=== PATIENT | female | born 1960 | race Caucasian/White ===

== ENCOUNTER 2019-02-07 05:03 | Inpatient (IN) ==
--- NOTE | 2019-01-04 10:05 | PAT Medication Instructions ---
Medication Instructions Date of Service January 04, 2019 Home Medications [facility] 1 dose PO DAILY 01/01/19 [History Confirmed 01/01/19] atorvastatin 40 mg PO QAM 01/01/19 [History Confirmed 01/01/19] celecoxib [Celebrex] 200 mg PO BID 01/01/19 [History Confirmed 01/01/19] ibuprofen 200 mg PO Q6H PRN 01/01/19 [History Confirmed 01/01/19] omeprazole 20 mg PO QAM 01/01/19 [History Confirmed 01/01/19] sertraline 50 mg PO QAM 01/01/19 [History Confirmed 01/01/19] ASK your surgeon for instructions celecoxib [Celebrex] 200 mg PO BID 01/01/19 [History Confirmed 01/01/19] ibuprofen 200 mg PO Q6H PRN 01/01/19 [History Confirmed 01/01/19] STOP taking 2 weeks before surgery (or as soon as possible if surgery is within 2 weeks) Frame [facility] 1 dose PO DAILY 01/01/19 [History Confirmed 01/01/19] Take morning of surgery With a small sip of water, OTHERWISE NOTHING TO EAT OR DRINK AFTER MIDNIGHT: atorvastatin 40 mg PO QAM 01/01/19 [History Confirmed 01/01/19] omeprazole 20 mg PO QAM 01/01/19 [History Confirmed 01/01/19] sertraline 50 mg PO QAM 01/01/19 [History Confirmed 01/01/19] Other Notes If you have any questions please call us at [phone] or [phone] or [phone] or [phone]
--- NOTE | 2019-01-07 13:55 | Anesthesiology Consultation ---
Date of Service January 07, 2019 Assessment & Plan (1) Encounter for pre-operative examination: Chart Review Chart Review: Pending: Refer to Additional Notes / Consult section (pending preop testing (labs, EKG, CXR)) and Patient seen in Pre Admission Testing Teaching & Discussion Pre-Anesthesia Teaching/Discussion Notes: Instructed NPO after midnight before surgery,except medications with 15 cc of water. Medication instructions provi ded according to the PAT guidelines. History Surgery Operation Date: 02/07/19 10:30 Proposed Procedures p Right Total Knee Arthroplasty - Reggie Elaine MD Height/Weight Height: 5 ft 4 in Weight: 85.6 kg Allergies Allergy/AdvReac Type Severity Reaction Status Date / Time No Known Allergies Allergy Verified 01/01/19 12:18 Medications Home Medications Medication Instructions Recorded Confirmed Last Taken [facility] 1 dose PO DAILY 01/01/19 01/01/19 Unknown atorvastatin 40 mg PO QAM 01/01/19 01/01/19 Unknown celecoxib [Celebrex] 200 mg PO BID 01/01/19 01/01/19 Unknown ibuprofen 200 mg PO Q6H PRN 01/01/19 01/01/19 Unknown omeprazole 20 mg PO QAM 01/01/19 01/01/19 Unknown sertraline 50 mg PO QAM 01/01/19 01/01/19 Unknown Past Medical History Medical History Anxiety GERD (gastroesophageal reflux disease) controlled History of breast cancer s/p bilateral mastectomy (no chemo/no XRT) Hyperlipidemia Obesity Osteoarthritis Exercise / Class Metabolic Activity II 4-5 Yardwork/Stairs/Walk up hill (one flight of stairs (no chest pain/no sob)) Past Surgical History Surgical History History of ankle surgery Lt History of arthroscopy of right knee History of bilateral mastectomy History of colonoscopy History of hernia repair History of reconstruction of both breasts Past Anesthesia History No Hx of Anesthesia Complications and No Family Hx of Anesthesia Complications History of PONV No Hx of PONV and Hx of Motion Sickness Social History Smoking Status: Never smoker Do You Dip or Chew Tobacco: No Hx Alcohol Use: No Hx Substance Use: No substance use type: does not use Review of Systems Reflux controlled. Patient denies chest pain, shortness of breath, dyspnea on exertion, cough, wheezing, palpitations. Physical Exam Vital Signs VITALS BP 123/83 P 67 TEMP 98.1 SP02 96%RA RESP 18 PHYSICAL Full neck and c-spine range of motion. Full TMJ range of motion. TMD 3.5 finger breaths Mallampati Score 3 Dentition: intact Lungs: clear throughout to auscultation Cardiac: regular rate and rhythm, no murmurs noted Spine: normal Carotid arteries: negative bruit Extremities: no edema
--- NOTE | 2019-01-07 14:51 | XRay Report ---
XR chest Pre-admission PA/Lat HISTORY: 58 years-old Female pat preoperative exam. No acute chest complaints COMPARISON: None available TECHNIQUE: PA and lateral views of the chest FINDINGS: Cardiac silhouette is mildly enlarged. No overt pulmonary edema. No pneumothorax, pleural effusion, f ocal airspace consolidation or overt pulmonary edema. Degenerative changes of the shoulders and spine with sigmoidal scoliosis. Surgical clips project over the left breast. IMPRESSION: No acute process. The above report was generated using voice recognition software. It may contain grammatical, syntax o r spelling errors. Electronically signed by: Kuldeep Schuler M.D. 01/07/2019 2:50 PM
[2019-01-07 14:59] LABS: Basophils # (auto) 0.03 K/uL (0-0.2); Basophils % (auto) 0.4 %; Eosinophils # (auto) 0.13 K/uL (0-0.5); Eosinophils % (auto) 1.8 %; Hematocrit (blood only) 39.3 % (37-47); Hemoglobin 13.1 g/dL (12.0-16.0); Immature Granulocytes # (auto) 0.02 K/uL (0.00-0.02); Immature Granulocytes % (auto) 0.3 %; Lymphocytes # (auto) 1.98 K/uL (1.2-3.4); Mean Corpuscular Hemoglobin 29.8 pg (25-34); Mean Corpuscular Hgb Conc 33.3 g/dL (32-36); Mean Corpuscular Volume 89.5 fL (80-100); Mean Platelet Volume 10.2 fL (7.4-10.4); Monocytes # (auto) 0.64 K/uL (0.11-0.59); Monocytes % (auto) 8.7 %; Neutrophils # (auto) 4.53 K/uL (1.4-6.5); Neutrophils % (auto) 61.8 %; Platelet Count 320 K/uL (130-400); RDW Coefficient of Variation 13.8 % (11.5-14.5); RDW Standard Deviation 45.7 fL (36.4-46.3); Red Blood Count 4.39 M/uL (4.2-5.4); White Blood Count 7.33 K/uL (4.8-10.8)
[2019-01-07 15:06] LABS: Albumin Level 3.6 gm/dl (3.4-5.0); BUN Creatinine Ratio 20.2 (10-20); Calcium 9.1 mg/dl (8.5-10.1); Creatinine Clr Calc Pharmacy 79.2 ml/min; Est GFR (African American) 92.1; Est GFR (Non-African American) 79.5; Potassium 3.7 mmol/L (3.5-5.1)
[2019-01-07 15:11] LABS: Appearance Urine Clear (Clear); Bilirubin Urine Negative (Negative); Blood Urine Negative (Negative); Color Urine Yellow; Glucose Urine UA Negative (Negative); Ketones Urine Negative (Negative); Leukocyte Esterase Urine Trace (Negative); Nitrite Urine Negative (Negative); Protein Urine Negative (Negative); Urobilinogen Urine Negative (Negative); pH Urine 5.5 (4.5-7.5)
[2019-01-07 15:29] LABS: RBC Urine 0-4 /hpf (0-4); WBC Urine 0-5 /hpf (0-5)
[2019-01-07 15:30] LABS: Bacteria Urine Negative (Negative)
[2019-01-07 15:40] LABS: Partial Thromboplastin Time 26.8 Seconds (21.0-31.0); Prothrombin Time 10.3 Seconds (9.0-12.0)
[2019-01-08 05:36] LABS: Estimated Average Glucose 128 mg/dl; Hemoglobin A1C 6.1 % (4.5-5.6)
--- NOTE | 2019-01-13 19:00 | History & Physical Report ---
Date of Service January 13, 2019 Assessment & Plan (1) Primary osteoarthritis of right knee: Treatment options discussed. She has failed conservative measures as above. She is [id number] medially. Risks, benefits and alternatives to surgery including but not limited to infection, DVT, pain, stiffness, need for revision surgery, damage to blood vessels, damage to nerves, PE, , were discussed with the patient and they wish to proceed. Plan will be for right total knee arthroplasty on 02/07/19 at [facility]. Will plan on aspirin 81mg BID x 30 days post op for DVT prophylaxis. Will plan on HHPT upon discharge from the hospital. All questions answered. She will follow up in the office post operatively. History of Present Illness Primary Care Provider: Evaristo Guillen MD 58 year old female with PMHx significant for high cholesterol, GERD, breast Ca, OA presents with ongoing right knee pain. She has significant osteoarthritis in her knee. She has pain and disability with daily activities. She has failed conservative measures including injections and anti-inflammatory medication. She would like to proceed with right knee replacement. Patient denies headaches, sweats, fevers, chills, double vision, blurred vision, cough, sore throat, dysphagia, chest pain, sob, wheezing, n/v/d/c, numbness, tingling, fatigue, urinary symptoms, mood disorders. ROS positive for right knee pain and stiffness. Allergies Allergy/AdvReac Type Severity Reaction Status Date / Time No Known Allergies Allergy Verified 01/01/19 12:18 Home Medications Home Medications Medication Instructions Recorded Confirmed Type Frame Essential Joint Health 1 dose PO DAILY 01/01/19 01/01/19 History atorvastatin 40 mg PO QAM 01/01/19 01/01/19 History celecoxib [Celebrex] 200 mg PO BID 01/01/19 01/01/19 History ibuprofen 200 mg PO Q6H PRN 01/01/19 01/01/19 History omeprazole 20 mg PO QAM 01/01/19 01/01/19 History sertraline 50 mg PO QAM 01/01/19 01/01/19 History Past Med/Surg History Medical History Anxiety GERD (gastroesophageal reflux disease) controlled History of breast cancer s/p bilateral mastectomy (no chemo/no XRT) Hyperlipidemia Obesity Osteoarthritis Surgical History History of ankle surgery Lt History of arthroscopy of right knee History of bilateral mastectomy History of colonoscopy History of hernia repair History of reconstruction of both breasts Social History Preferred Language: Malawian Communication Ability: Effective Cephalometric Analyst Required: No Beliefs That Will Affect Care: None Current Living Situation: Spouse Other Information That Helps Us Care for You: No Feels Safe at Home: Yes Safety Concerns: Feels Safe At This Time Smoking Status: Never smoker Do You Dip or Chew Tobacco: No ; Second Hand Exposure: No ; Hx Alcohol Use: No Hx Substance Use: No Review of Systems All systems reviewed & are unremarkable except as noted in HPI & below Physical Exam Constitutional: well developed and well nourished; no acute distress Eyes: PERRL, conjunctivae normal, anicteric sclerae ENMT: external ear and nose normal, oropharynx normal Neck: trachea midline, no thyromegaly Respiratory: normal respiratory effort, lungs clear to auscultation Cardiovascular: RRR, no murmur, no edema Musculoskeletal: Right knee-ROM 0-130, crepitus noted. Mild effusion. tenderness medial joint line. Stable to valgus and varus stress. Positive Nancy's Skin: no rashes, warm and dry Neurologic: patellar DTR's 2+ bilat, sensation intact Psychiatric: A+Ox3, euthymic affect Results & Data Laboratory Results Lab Results 01/07/19 01/07/19 01/07/19 Range/Units 14:13 14:13 14:13 WBC 7.33 (4.8-10.8) K/uL RBC 4.39 (4.2-5.4) M/uL Hgb 13.1 (12.0-16.0) g/dL Hct 39.3 (37-47) % MCV 89.5 (80-100) fL MCH 29.8 (25-34) pg MCHC 33.3 (32-36) g/dL RDW Std Deviation 45.7 (36.4-46.3) fL RDW Coeff of Kiki 13.8 (11.5-14.5) % Plt Count 320 (130-400) K/uL MPV 10.2 (7.4-10.4) fL Immature Gran % (Auto) 0.3 % Neut % (Auto) 61.8 % Lymph % (Auto) 27.0 % King % (Auto) 8.7 % Eos % (Auto) 1.8 % Baso % (Auto) 0.4 % Immature Gran # (Auto) 0.02 (0.00-0.02) K/uL Neut # (Auto) 4.53 (1.4-6.5) K/uL Lymph # (Auto) 1.98 (1.2-3.4) K/uL King # (Auto) 0.64 H (0.11-0.59) K/uL Eos # (Auto) 0.13 (0-0.5) K/uL Baso # (Auto) 0.03 (0-0.2) K/uL PT 10.3 (9.0-12.0) Seconds INR 1.0 (0.9-1.1) APTT 26.8 (21.0-31.0) Seconds PTT Ratio 1.0 Sodium 140 (136-145) mmol/L Potassium 3.7 (3.5-5.1) mmol/L Chloride 108 H (98-107) mmol/L Carbon Dioxide 24 (21-32) mmol/L Anion Gap 8.0 (3-11) BUN 16 (7-18) mg/dl Creatinine 0.81 (0.6-1.2) mg/dl Est Cr Clr Drug Dosing 79.2 ml/min Est GFR ( Amer) 92.1 Est GFR (Non-Af Amer) 79.5 BUN/Creatinine Ratio 20.2 H (10-20) Glucose 112 H (70-99) mg/dl Estimat Average Glucose mg/dl Hemoglobin A1c (4.5-5.6) % Calcium 9.1 (8.5-10.1) mg/dl Albumin 3.6 (3.4-5.0) gm/dl Urine Color Urine Appearance (Clear) Urine pH (4.5-7.5) Ur Specific Byron (1.000-1.030) Urine Protein (Negative) Urine Glucose (UA) (Negative) Urine Ketones (Negative) Urine Blood (Negative) Urine Nitrite (Negative) Urine Bilirubin (Negative) Urine Urobilinogen (Negative) Ur Leukocyte Esterase (Negative) Urine RBC (0-4) /hpf Urine WBC (0-5) /hpf Ur Epithelial Cells (0-5) /lpf Urine Bacteria (Negative) Blood Type Antibody Screen 01/07/19 01/07/19 01/07/19 Range/Units 14:13 14:13 14:13 WBC (4.8-10.8) K/uL RBC (4.2-5.4) M/uL Hgb (12.0-16.0) g/dL Hct (37-47) % MCV (80-100) fL MCH (25-34) pg MCHC (32-36) g/dL RDW Std Deviation (36.4-46.3) fL RDW Coeff of Kiki (11.5-14.5) % Plt Count (130-400) K/uL MPV (7.4-10.4) fL Immature Gran % (Auto) % Neut % (Auto) % Lymph % (Auto) % King % (Auto) % Eos % (Auto) % Baso % (Auto) % Immature Gran # (Auto) (0.00-0.02) K/uL Neut # (Auto) (1.4-6.5) K/uL Lymph # (Auto) (1.2-3.4) K/uL King # (Auto) (0.11-0.59) K/uL Eos # (Auto) (0-0.5) K/uL Baso # (Auto) (0-0.2) K/uL PT (9.0-12.0) Seconds INR (0.9-1.1) APTT (21.0-31.0) Seconds PTT Ratio Sodium (136-145) mmol/L Potassium (3.5-5.1) mmol/L Chloride (98-107) mmol/L Carbon Dioxide (21-32) mmol/L Anion Gap (3-11) BUN (7-18) mg/dl Creatinine (0.6-1.2) mg/dl Est Cr Clr Drug Dosing ml/min Est GFR ( Amer) Est GFR (Non-Af Amer) BUN/Creatinine Ratio (10-20) Glucose (70-99) mg/dl Estimat Average Glucose 128 mg/dl Hemoglobin A1c 6.1 H (4.5-5.6) % Calcium (8.5-10.1) mg/dl Albumin (3.4-5.0) gm/dl Urine Color Yellow Urine Appearance Clear (Clear) Urine pH 5.5 (4.5-7.5) Ur Specific Byron 1.010 (1.000-1.030) Urine Protein Negative (Negative) Urine Glucose (UA) Negative (Negative) Urine Ketones Negative (Negative) Urine Blood Negative (Negative) Urine Nitrite Negative (Negative) Urine Bilirubin Negative (Negative) Urine Urobilinogen Negative (Negative) Ur Leukocyte Esterase Trace H (Negative) Urine RBC 0-4 (0-4) /hpf Urine WBC 0-5 (0-5) /hpf Ur Epithelial Cells 5-10 H (0-5) /lpf Urine Bacteria Negative (Negative) Blood Type O Positive Antibody Screen NEGATIVE Diagnostic Findings Right knee radiographs: [id number] medial compartment with osteophyte formation medial femoral condyle and medial tibial plateau. Subchondral sclerotic change.
[2019-02-07] MEDS ORDERED: METOCLOPRAMIDE HCL 10 MG TABLET PO SCH (06:00)
[2019-02-07] MEDS ORDERED: FAMOTIDINE 20 MG TAB PO SCH (06:00)
[2019-02-07] MEDS ORDERED: GABAPENTIN 600 MG DOSE PO SCH (06:00)
[2019-02-07] MEDS ORDERED: TRANEXAMIC ACID 1,000 MG **IV Intra-op IV SCH (06:00)
[2019-02-07] MEDS ORDERED: ACETAMINOPHEN 500 MG TAB PO SCH (06:00)
[2019-02-07] MEDS ORDERED: CEFAZOLIN 2000MG 2,000 MG/15 ML SYR IV SCH (06:00)
[2019-02-07] MEDS ORDERED: dexAMETHasone 4 MG TAB PO SCH (06:00)
[2019-02-07] MEDS ORDERED: TRANEXAMIC ACID 1,000 MG **IV Pre-op IV SCH (06:00)
[2019-02-07] MEDS ORDERED: LR 500ML BOLUS, THEN 15ML/HR IV SCH (06:00)
[2019-02-07] MEDS ORDERED: ROPIVACAINE 0.5% HCL/PF 150 MG, BUPIVACAINE 0.5% MPF 30 ML, EPINEPHrine 30MG/30ML (OR U... INSTIL SCH (06:00)
[2019-02-07] MEDS ORDERED: CeleBREX 200 MG CAP PO SCH (06:00)
[2019-02-07] MEDS ORDERED: OXYCODONE HCL 10 MG TABCR (OXYCONTIN) PO SCH (06:00)
[2019-02-07] MEDS ORDERED: ROPIVACAINE 0.5% 5 MG/ML 30 ML VIAL ONE (06:15)
[2019-02-07] MEDS ORDERED: BUPIVACAINE 0.5 % 5 MG/1 ML PF 10ML VIAL ONE (06:15)
[2019-02-07] MEDS ORDERED: BACITRACIN INJ 50,000 UNIT VIAL ONE (06:42)
[2019-02-07] MEDS ORDERED: ORTHO JOINT ANESTHETIC ONE (06:42)
[2019-02-07] MEDS ORDERED: MIDAZOLAM HCL 1 MG/ML 2ML VIAL ONE (06:46)
--- NOTE | 2019-02-07 06:47 | History & Physical Bridge Note ---
Date of Service February 07, 2019 History & Physical Bridge Note I have examined the patient, reviewed the History & Physical and in the interval since the performance of the History & Physical I have noted the following changes of clinical significance: no changes noted
[2019-02-07] MEDS ORDERED: fentaNYL citrate 100 MCG/2 ML VIAL ONE ×2 (07:19→08:23)
[2019-02-07] MEDS ORDERED: DEXAMETHASONE SOD INJ 4 MG/ML VIAL ONE (08:06)
[2019-02-07] MEDS ORDERED: LIDOCAINE HCL 2% 2 ML VIAL/AMP(20MG/ML) INFIL ONE (08:06)
[2019-02-07] MEDS ORDERED: PROPOFOL IV EMULSION 10 MG/ML 20 ML VIAL IV ONE (08:06)
[2019-02-07] MEDS ORDERED: ONDANSETRON INJ 2 MG/ML 2 ML VIAL ONE (08:06)
[2019-02-07] MEDS ORDERED: HYDROmorphone INJ 2 MG/ML SYR/VIAL IV PRN (08:09)
[2019-02-07] MEDS ORDERED: ATROPINE SULFATE 0.1 MG/ML 10ML SYR IV PRN (08:09)
[2019-02-07] MEDS ORDERED: PROMETHAZINE HCL 12.5 MG in SODIUM CHLORIDE 0.9% 50 ML IV PRN (08:09)
[2019-02-07] MEDS ORDERED: ePHEDrine sulfate 50 MG/ML AMP IV PRN (08:09)
[2019-02-07] MEDS ORDERED: PHENYLEPHRINE 100MCG/ML 5ML SYR ONE (08:09)
[2019-02-07] MEDS ORDERED: METOCLOPRAMIDE HCL INJ 5 MG/ML 2 ML VIAL IV PRN ×2 (08:09→10:14)
[2019-02-07] MEDS ORDERED: fentaNYL citrate 100 MCG/2 ML VIAL IV PRN (08:09)
[2019-02-07] MEDS ORDERED: ONDANSETRON INJ 2 MG/ML 2 ML VIAL IV PRN ×2 (08:09→10:14)
--- NOTE | 2019-02-07 08:43 | Operative Report ---
Post Operative Report Pre & Post Diagnosis Operation Date: 02/07/19 07:00 Pre-Op Diagnosis: RIGHT KNEE OSTEOARTHRITIS Post-Op Diagnosis: RIGHT KNEE OSTEOARTHRITIS I identified the patient and participated in the time-out.: Yes Procedure Operation Date: 02/07/19 07:00 Actual Procedures p Right Total Knee Arthroplasty(Right) - Reggie Elaine MD Surgeon Reggie Elaine MD Composition Siding Worker Alfredo Gonzalez PA-C Estimated Blood Loss 20 Findings Consistent with Post-Op Diagnosis Specimens Bone and tissue Drains 2 Hemovac Anesthesia Type MAC Spinal Regional Complications none Disposition Accompanied Patient To Recovery: No Disposition: Recovery Room Indications The patient is a 58-year-old female with longstanding arthritic change in the right knee. She is [id number] medial compartment. She is failed conservative measures including injection, anti-inflammatories, rehab. She wishes to proceed with a right total knee arthroplasty. Description of Procedure Risks benefits and alternatives of surgery including but not limited to infection, DVT, pain, stiffness, need for surgery, damage to blood vessels, d amage to nerves or risks of anesthesia were discussed with the patient and they wished to proceed. The patient was identified and the laterality was confirmed and marked. They received a preoperative antibiotic as well as a spinal anesthetic and an abductor canal block. A well-padded tourniquet was applied and then the limb was prepped and draped in standard manner with ChloraPrep. The limb was exsanguinated and the tourniquet was inflated. I made a standard anterior incision. I sharply incised the skin then utilized Bovie electrocautery to achieve hemostasis. I made a medial parapatellar arthrotomy and mobilized the patella laterally. I then excised the anterior horns of the medial and lateral meniscus as well as the infrapatellar fat pad. I elevated a portion of the MCL off of the tibia. I then pinned into place a patient-matched distal femoral cutting guide and made my distal femoral resection. I then pinned into place the 5 in 1 femoral cutting guide. I made my anterior, posterior and chamfer cuts. I then excised the cruciates and the remaining portions of the menisci. I then pinned into place a patient- matched tibial cutting guide and made my tibial resection. I then pinned into place the tibial plate a utilizing alignment satya to confirm rotation. I then cut for the post. Utilizing a lamina [employer] rep and I then removed posterior osteophytes off the femur. I then placed a trial femur into position and cut for the trochlear component. I then sequentially trialed to size the polyethylene until there was good soft tissue balancing and range of motion. I then prepared the patella with a freehand cut utilizing sagittal saw. I sized and drilled for the patella. There was good tracking to the patella no lateral release was needed. All the trial components were removed. The deep tissues were anesthetized with an ortho mix solution. Then with Simplex HV with gentamicin cement, I cemented my definitive components. Definitive components, [facility] 2: Femur 5 Tibia 3 Poly 9 Patella 29 oval A betadine soak was performed. A deep drain was placed. The arthrotomy was closed with interrupted #1 Vicryl suture subcutaneous tissue was closed with interrupted 2-0 Vicryl suture. The skin was closed with with rakel. An Acticoat and Bebeto dressing were placed. Sterile dressings were applied. All needle and sponge counts were correct at the end of the procedure patient was transferred to the PACU in stable condition without apparent complication. The PA-C was necessary for assistance with procedure for assistance in positioning, prepping, draping, retraction and closure. I attest to the content of the Intraoperative Record and any orders documented therein. Any exceptions are noted below.
--- NOTE | 2019-02-07 09:50 | XRay Report ---
RIGHT KNEE 2 VIEWS History: Right total knee arthroplasty. Degenerative arthritis. Postop. FINDINGS: The patient is status post a right total knee arthroplasty. The hardware is intact. No frac ture or dislocation. Skin rakel and surgical drains are in place. IMPRESSION: Right total knee arthroplasty. No evidence for hardware complication. ACT 112: Negative or not required by law. Electronically signed by: Prateek Maldonado M.D. 02/07/2019 9:49 AM
[2019-02-07] MEDS ORDERED: NALOXONE HCL 0.4 MG/1 ML VIAL/CARP IV PRN (10:14)
[2019-02-07] MEDS ORDERED: bisacodyL 10 MG SUPP PR PRN (10:14)
[2019-02-07] MEDS ORDERED: MAGNESIUM HYDROXIDE SUSP 30 ML UDC PO PRN (10:14)
--- NOTE | 2019-02-07 11:07 | Anesthesiology Progress Note ---
Date of Service February 07, 2019 Anesthesia Post Procedure Vital Signs Vital Signs: Temp Pulse Pulse Resp BP Pulse Ox 02/07/19 10:35 36.6 C 75 18 122/74 94 02/07/19 10:17 37 C 79 15 130/77 94 02/07/19 09:50 36.9 C 77 16 122/71 94 02/07/19 09:40 79 16 119/81 95 02/07/19 09:30 79 16 129/77 95 02/07/19 09:23 37.0 C 90 20 134/74 95 02/07/19 05:34 36.8 C 76 20 159/89 H 97 Transfer of Care Handoff Completed per policy Notes Mental Status: alert / awake / arousable and participated in evaluation Patient Amnestic to Procedure: Yes Nausea / Vomiting: adequately controlled Pain: adequately controlled Airway Patency, RR, SpO2: stable & adequate BP & HR: stable & adequate Hydration State: stable & adequate Anesthetic Complications: no major complications apparent
[2019-02-07] MEDS: SODIUM CHLORIDE 0.9% 1000ML 1,000 ML IV SCH ×2 (13:18→22:44)
[2019-02-07] MEDS: ACETAMINOPHEN 500 MG TAB PO SCH ×2 (14:30→21:46)
[2019-02-07] MEDS: CEFAZOLIN 2000MG 2,000 MG/15 ML SYR IV SCH ×2 (14:30→22:12)
[2019-02-07] MEDS: SENNA 8.6 MG TAB PO SCH (20:04)
[2019-02-07] MEDS: ASPIRIN 81 MG ECTAB PO SCH (20:04)
[2019-02-07] MEDS: CeleBREX 200 MG CAP PO SCH (20:05)
[2019-02-07] MEDS: DOCUSATE SODIUM 100 MG CAP PO SCH (20:05)
[2019-02-07] MEDS: OXYCODONE HCL IR 5 MG TAB (IMMEDIATE RELEASE) PO PRN (21:49)
[2019-02-08] MEDS: OXYCODONE HCL IR 5 MG TAB (IMMEDIATE RELEASE) PO PRN ×5 (03:35→18:27)
[2019-02-08 06:04] LABS: Hemoglobin 10.8 g/dL (12.0-16.0); Mean Corpuscular Hemoglobin 29.3 pg (25-34); Mean Corpuscular Hgb Conc 32.7 g/dL (32-36); Mean Corpuscular Volume 89.7 fL (80-100); Mean Platelet Volume 9.6 fL (7.4-10.4); Platelet Count 299 K/uL (130-400); RDW Coefficient of Variation 13.9 % (11.5-14.5); Red Blood Count 3.68 M/uL (4.2-5.4); White Blood Count 14.77 K/uL (4.8-10.8)
[2019-02-08] MEDS: ACETAMINOPHEN 500 MG TAB PO SCH ×3 (06:24→20:50)
[2019-02-08 06:42] LABS: Calcium 8.2 mg/dl (8.5-10.1); Creatinine Clr Calc Pharmacy 94.1 ml/min; Est GFR (Non-African American) 95.7; Potassium 3.8 mmol/L (3.5-5.1)
[2019-02-08] MEDS ORDERED: KETOROLAC 30 MG/ML VIAL IV ONE (07:15)
--- NOTE | 2019-02-08 07:35 | Orthopedic Progress Note ---
Date of Service February 08, 2019 Assessment & Plan (1) S/P total knee arthroplasty: POD#1 Right TKA -Pain management-Will get dose of toradol this morning to help better control pain -DVT prophylaxis-SCDs, TEDs, ASA 81mg BID -PT/OT -AM labs-Hgb 10.8 this morning from 13.1 preop, acute blood loss anemia likely due to surgical loss vs dilutional effect. -D/C planning-home with home health PT when stable, likely tomorrow. Subjective Patient seen sitting in bedside chair. Having a lot of pain this morning and difficulty getting comfortable. No other complaints at this time. Denies chest pain, sob, dizziness, n/v/d. Review of Systems Review of Systems: All systems reviewed & are unremarkable except as noted in HPI & below Physical Exam Physical Exam: Right knee dressing c/d/i, no calf tenderness, toes mobile, good dorsiflexion. Hemovac in place. Distlally n/v status and sensation intact. Constitutional: well developed and well nourished; no acute distress Results & Data Vital Signs (Past 12 Hours) Vital Signs Temp Pulse Resp BP BP Pulse Ox 02/08/19 07:28 36.7 C 68 16 127/78 90 02/08/19 03:31 37.0 C 71 16 126/73 93 02/07/19 23:33 37.1 C 78 16 110/67 92 02/07/19 19:34 37.0 C 81 18 123/75 92 Laboratory Results H & H 01/07/19 02/08/19 Range/Units 14:13 05:35 Hgb 13.1 10.8 L (12.0-16.0) g/dL Hct 39.3 33.0 L (37-47) % Coagulation 01/07/19 Range/Units 14:13 INR 1.0 (0.9-1.1)
--- NOTE | 2019-02-08 07:48 | Anesthesiology Progress Note ---
Date of Service February 08, 2019 Anesthesia Post Procedure Vital Signs Vital Signs: Temp Pulse Pulse Resp BP BP Pulse Ox 02/08/19 07:28 36.7 C 68 16 127/78 90 02/08/19 03:31 37.0 C 71 16 126/73 93 02/07/19 23:33 37.1 C 78 16 110/67 92 02/07/19 19:34 37.0 C 81 18 123/75 92 02/07/19 16:39 36.9 C 92 H 18 122/76 91 02/07/19 13:03 36.8 C 68 18 116/74 97 02/07/19 12:03 36.7 C 71 18 121/74 93 02/07/19 11:05 36.3 C L 72 18 119/76 93 02/07/19 10:35 36.6 C 75 18 122/74 94 02/07/19 10:17 37 C 79 15 130/77 94 02/07/19 09:50 36.9 C 77 16 122/71 94 02/07/19 09:40 79 16 119/81 95 02/07/19 09:30 79 16 129/77 95 02/07/19 09:23 37.0 C 90 20 134/74 95 Pain Intensity Right Knee: Pain Intensity: 10 Notes Mental Status: alert / awake / arousable and participated in evaluation Patient Amnestic to Procedure: Yes Nausea / Vomiting: adequately controlled Pain: see Notes below (RN currently retrieving pain medication for patient.) Airway Patency, RR, SpO2: stable & adequate BP & HR: stable & adequate Hydration State: stable & adequate Anesthetic Complications: no major complications apparent
[2019-02-08] MEDS: MULTIVITAMIN TAB PO SCH (08:25)
[2019-02-08] MEDS: CeleBREX 200 MG CAP PO SCH ×2 (08:26→20:50)
[2019-02-08] MEDS: SERTRALINE HCL 50 MG TABLET PO SCH (08:26)
[2019-02-08] MEDS: ATORVASTATIN 40 MG TAB PO SCH (08:26)
[2019-02-08] MEDS: PANTOprazole 40 MG TAB PO SCH (08:26)
[2019-02-08] MEDS: DOCUSATE SODIUM 100 MG CAP PO SCH ×2 (08:26→20:49)
[2019-02-08] MEDS: ASPIRIN 81 MG ECTAB PO SCH ×2 (08:27→20:49)
[2019-02-08] MEDS ORDERED: [UNRECOGNIZED DRUG - OTHER] PO SCH (09:00)
[2019-02-08] MEDS: HYDROmorphone INJ 0.5 MG/0.5 ML SYR IV PRN (20:50)
[2019-02-08] MEDS: SENNA 8.6 MG TAB PO SCH (20:50)
[2019-02-09] MEDS: HYDROmorphone INJ 0.5 MG/0.5 ML SYR IV PRN (00:58)
[2019-02-09] MEDS: ACETAMINOPHEN 500 MG TAB PO SCH (05:50)
[2019-02-09] MEDS: OXYCODONE HCL IR 5 MG TAB (IMMEDIATE RELEASE) PO PRN ×2 (05:51→11:18)
[2019-02-09] MEDS: ATORVASTATIN 40 MG TAB PO SCH (07:38)
[2019-02-09] MEDS: PANTOprazole 40 MG TAB PO SCH (07:39)
[2019-02-09] MEDS: DOCUSATE SODIUM 100 MG CAP PO SCH (07:39)
[2019-02-09] MEDS: CeleBREX 200 MG CAP PO SCH (07:39)
[2019-02-09] MEDS: MULTIVITAMIN TAB PO SCH (07:39)
[2019-02-09] MEDS: SERTRALINE HCL 50 MG TABLET PO SCH (07:39)
[2019-02-09] MEDS: ASPIRIN 81 MG ECTAB PO SCH (07:39)
--- NOTE | 2019-02-09 08:20 | Orthopedic Progress Note ---
Date of Service February 09, 2019 Assessment & Plan (1) S/P total knee arthroplasty: POD#2 Right TKA -Pain management-seems to be better controlled this AM. -DVT prophylaxis-SCDs, TEDs, ASA 81mg BID -PT/OT -D/C planning-home with home health today Subjective Doing well today. States the knee is sore but the pain meds are helping the pain. No other complaints at this time. Denies chest pain, sob, dizziness, n/v/d. Physical Exam Constitutional: WD/WN, vitals as above no acute distress Musculoskeletal: Knee: + surgical incision (right knee--Dressing C/D/I and functioning well.); knee normal to inspection, no deformity, no skin erythema, no ecchymosis, no surgical drain present, no valgus alignment and no varus alignment Neurologic: normal touch/pain/proprioception Psychiatric: A+Ox3, euthymic affect Speech: normal rate/rhythm/volume of speech Results & Data Vital Signs (Past 12 Hours) Vital Signs Temp Pulse Pulse Resp BP Pulse Ox 02/09/19 06:32 37.4 C 72 18 143/80 H 91 02/08/19 22:51 37.0 C 86 16 103/67 92
--- NOTE | 2019-02-09 20:11 | Discharge Summary ---
Date of Service February 09, 2019 Admission HPI Per Admitting Provider 58 year old female with PMHx significant for high cholesterol, GERD, breast Ca, OA presents with ongoing right knee pain. She has significant osteoarthritis in her knee. She has pain and disability with daily activities. She has failed conservative measures including injections and anti-inflammatory medication. She would like to proceed with right knee replacement. Patient denies headaches, sweats, fevers, chills, double vision, blurred vision, cough, sore throat, dysphagia, chest pain, sob, wheezing, n/v/d/c, numbness, tingling, fatigue, urinary symptoms, mood disorders. ROS positive for right knee pain and stiffness. Admission Exam Per Admitting Provider Constitutional: well developed and well nourished; no acute distress Eyes: PERRL, conjunctivae normal, anicteric sclerae ENMT: external ear and nose normal, oropharynx normal Neck: trachea midline, no thyromegaly Respiratory: normal respiratory effort, lungs clear to auscultation Cardiovascular: RRR, no murmur, no edema Musculoskeletal: Right knee-ROM 0-130, crepitus noted. Mild effusion. tenderness medial joint line. Stable to valgus and varus stress. Positive Nancy's Skin: no rashes, warm and dry Neurologic: patellar DTR's 2+ bilat, sensation intact Psychiatric: A+Ox3, euthymic affect Principal Diagnosis Right knee osteoarthritis Discharge Exam Constitutional well developed and well nourished; no acute distress Eyes PERRL, conjunctivae normal, anicteric sclerae ENMT external ear and nose normal, oropharynx normal Neck trachea midline, no thyromegaly Respiratory normal respiratory effort, lungs clear to auscultation Cardiovascular RRR, no murmur, no edema Skin no rashes, warm and dry Neurologic patellar DTR's 2+ bilat, sensation intact Psychiatric A+Ox3, euthymic affect Discharge Data Allergies Allergy/AdvReac Type Severity Reaction Status Date / Time No Known Allergies Allergy Verified 01/01/19 12:18 Consultations 02/07/19 10:14 Consult Case Management - Discharge Planning Routine Procedures Performed Operation Date: 02/07/19 07:00 Actual Procedures p Right Total Knee Arthroplasty(Right) - Reggie Elaine MD Ordered Studies 02/07/19 05:00 US - OR guided needle placemen Urgent Hospital Course (1) S/P total knee arthroplasty: Patient presented for same day admission following right total knee arthroplasty on 02/07/19. She tolerated procedure well. The Patient had an uneventful hospital course. On POD#1 she was having difficulty with pain control and was given a dose of Toradol which helped significantly. Post-operatively, her activity was progressed and well tolerated. They participated in PT with ambulation distance of 200 feet. ROM of operative knee reached 81 degrees on POD#2 from 65 degrees on POD#1. Labs remained stable- lowest hemoglobin recorded: 10.8. Pain controlled on oral medications. Please refer to daily progress notes and PT notes for complete details. After exam on 02/09/19, patient was felt to be stable for discharge home with home health PT. Patient will f/u in the office in about 2 weeks for further evaluation including x-rays and incision check, sooner if having any issues or concerns. Lab Results 01/07/1901/07/01/07/ Range/Units 14:13 14:13 14:13 WBC 7.33 (4.8-10.8) K/uL RBC 4.39 (4.2-5.4) M/uL Hgb 13.1 (12.0-16.0) g/dL Hct 39.3 (37-47) % MCV 89.5 (80-100) fL MCH 29.8 (25-34) pg MCHC 33.3 (32-36) g/dL RDW Std Deviation 45.7 (36.4-46.3) fL RDW Coeff of Kiki 13.8 (11.5-14.5) % Plt Count 320 (130-400) K/uL MPV 10.2 (7.4-10.4) fL Immature Gran % (Auto) 0.3 % Neut % (Auto) 61.8 % Lymph % (Auto) 27.0 % [place] % (Auto) 8.7 % Eos % (Auto) 1.8 % Baso % (Auto) 0.4 % Immature Gran # (Auto) 0.02 (0.00-0.02) K/uL Neut # (Auto) 4.53 (1.4-6.5) K/uL Lymph # (Auto) 1.98 (1.2-3.4) K/uL [place] # (Auto) 0.64 H (0.11-0.59) K/uL Eos # (Auto) 0.13 (0-0.5) K/uL Baso # (Auto) 0.03 (0-0.2) K/uL PT 10.3 (9.0-12.0) Seconds INR 1.0 (0.9-1.1) APTT 26.8 (21.0-31.0) Seconds PTT Ratio 1.0 Sodium 140 (136-145) mmol/L Potassium 3.7 (3.5-5.1) mmol/L Chloride 108 H (98-107) mmol/L Carbon Dioxide 24 (21-32) mmol/L Anion Gap 8.0 (3-11) BUN 16 (7-18) mg/dl Creatinine 0.81 (0.6-1.2) mg/dl Est Cr Clr Drug Dosing 79.2 ml/min Est GFR ( Amer) 92.1 Est GFR (Non-Af Amer) 79.5 BUN/Creatinine Ratio 20.2 H (10-20) Glucose 112 H (70-99) mg/dl Estimat Average Glucose mg/dl Hemoglobin A1c (4.5-5.6) % Calcium 9.1 (8.5-10.1) mg/dl Albumin 3.6 (3.4-5.0) gm/dl Urine Color Urine Appearance (Clear) Urine pH (4.5-7.5) Ur Specific [place] (1.000-1.030) Urine Protein (Negative) Urine Glucose (UA) (Negative) Urine Ketones (Negative) Urine Blood (Negative) Urine Nitrite (Negative) Urine Bilirubin (Negative) Urine Urobilinogen (Negative) Ur Leukocyte Esterase (Negative) Urine RBC (0-4) /hpf Urine WBC (0-5) /hpf Ur Epithelial Cells (0-5) /lpf Urine Bacteria (Negative) Blood Type Antibody Screen 01/07/19 01/07/19 01/07/19 Range/Units 14:13 14:13 14:13 WBC (4.8-10.8) K/uL RBC (4.2-5.4) M/uL Hgb (12.0-16.0) g/dL Hct (37-47) % MCV (80-100) fL MCH (25-34) pg MCHC (32-36) g/dL RDW Std Deviation (36.4-46.3) fL RDW Coeff of Kiki (11.5-14.5) % Plt Count (130-400) K/uL MPV (7.4-10.4) fL Immature Gran % (Auto) % Neut % (Auto) % Lymph % (Auto) % [place] % (Auto) % Eos % (Auto) % Baso % (Auto) % Immature Gran # (Auto) (0.00-0.02) K/uL Neut # (Auto) (1.4-6.5) K/uL Lymph # (Auto) (1.2-3.4) K/uL [place] # (Auto) (0.11-0.59) K/uL Eos # (Auto) (0-0.5) K/uL Baso # (Auto) (0-0.2) K/uL PT (9.0-12.0) Seconds INR (0.9-1.1) APTT (21.0-31.0) Seconds PTT Ratio Sodium (136-145) mmol/L Potassium (3.5-5.1) mmol/L Chloride (98-107) mmol/L Carbon Dioxide (21-32) mmol/L Anion Gap (3-11) BUN (7-18) mg/dl Creatinine (0.6-1.2) mg/dl Est Cr Clr Drug Dosing ml/min Est GFR ( Amer) Est GFR (Non-Af Amer) BUN/Creatinine Ratio (10-20) Glucose (70-99) mg/dl Estimat Average Glucose 128 mg/dl Hemoglobin A1c 6.1 H (4.5-5.6) % Calcium (8.5-10.1) mg/dl Albumin (3.4-5.0) gm/dl Urine Color Yellow Urine Appearance Clear (Clear) Urine pH 5.5 (4.5-7.5) Ur Specific [place] 1.010 (1.000-1.030) Urine Protein Negative (Negative) Urine Glucose (UA) Negative (Negative) Urine Ketones Negative (Negative) Urine Blood Negative (Negative) Urine Nitrite Negative (Negative) Urine Bilirubin Negative (Negative) Urine Urobilinogen Negative (Negative) Ur Leukocyte Esterase Trace H (Negative) Urine RBC 0-4 (0-4) /hpf Urine WBC 0-5 (0-5) /hpf Ur Epithelial Cells 5-10 H (0-5) /lpf Urine Bacteria Negative (Negative) Blood Type O Positive Antibody Screen NEGATIVE 02/08/19 02/08/19 Range/Units 05:35 05:35 WBC 14.77 H (4.8-10.8) K/uL RBC 3.68 L (4.2-5.4) M/uL Hgb 10.8 L (12.0-16.0) g/dL Hct 33.0 L (37-47) % MCV 89.7 (80-100) fL MCH 29.3 (25-34) pg MCHC 32.7 (32-36) g/dL RDW Std Deviation 46.0 (36.4-46.3) fL RDW Coeff of Kiki 13.9 (11.5-14.5) % Plt Count 299 (130-400) K/uL MPV 9.6 (7.4-10.4) fL Immature Gran % (Auto) % Neut % (Auto) % Lymph % (Auto) % [place] % (Auto) % Eos % (Auto) % Baso % (Auto) % Immature Gran # (Auto) (0.00-0.02) K/uL Neut # (Auto) (1.4-6.5) K/uL Lymph # (Auto) (1.2-3.4) K/uL [place] # (Auto) (0.11-0.59) K/uL Eos # (Auto) (0-0.5) K/uL Baso # (Auto) (0-0.2) K/uL PT (9.0-12.0) Seconds INR (0.9-1.1) APTT (21.0-31.0) Seconds PTT Ratio Sodium 140 (136-145) mmol/L Potassium 3.8 (3.5-5.1) mmol/L Chloride 112 H (98-107) mmol/L Carbon Dioxide 24 (21-32) mmol/L Anion Gap 4.0 (3-11) BUN 19 H (7-18) mg/dl Creatinine 0.68 (0.6-1.2) mg/dl Est Cr Clr Drug Dosing 94.1 ml/min Est GFR ( Amer) 111.0 Est GFR (Non-Af Amer) 95.7 BUN/Creatinine Ratio 28.0 H (10-20) Glucose 106 H (70-99) mg/dl Estimat Average Glucose mg/dl Hemoglobin A1c (4.5-5.6) % Calcium 8.2 L (8.5-10.1) mg/dl Albumin (3.4-5.0) gm/dl Urine Color Urine Appearance (Clear) Urine pH (4.5-7.5) Ur Specific [place] (1.000-1.030) Urine Protein (Negative) Urine Glucose (UA) (Negative) Urine Ketones (Negative) Urine Blood (Negative) Urine Nitrite (Negative) Urine Bilirubin (Negative) Urine Urobilinogen (Negative) Ur Leukocyte Esterase (Negative) Urine RBC (0-4) /hpf Urine WBC (0-5) /hpf Ur Epithelial Cells (0-5) /lpf Urine Bacteria (Negative) Blood Type Antibody Screen Total Time Total Time Spent Total Time Spent (In Minutes): 20 Discharge Plan Discharge Items Patient Disposition: Home - Home Health Services Reason For Visit: RIGHT KNEE OSTEOARTHRITIS Discharge Diagnosis: right knee osteoarthritis Activity: Per Instructions section Non-emergency contact: Surgeon Call non-emergency contact if: your pain is not controlled, your pain is worsening and your temperature is above 101 Follow-up/Referrals: Evaristo Guillen MD [Primary Care Provider] - Diet: Regular Addtl Attending Provider Instructions: ACTIVITY RECOMMENDATIONS: SELF CARE INSTRUCTIONS AFTER TOTAL KNEE REPLACEMENT A. You may need to continue a physical therapy program after discharge from the hospital. There are several options available to you. Your doctor will assist you in selecting the best one for you. 1. An out-patient facility 3 times a week for therapy. 2. Home therapy for 1 to 2 weeks with outpatient therapy to follow. 3. Continue working on all exercises taught by physical therapy three times a day for 20 minutes on non-therapy days. Your goals should be to increase the bending of your knee to 90 degrees and beyond and to fully straighten your knee. Ice and elevate knee after exercise. B. Weight as tolerated with a walker or as instructed by your physician. C. It is okay to shower if minimal to no drainage from incision. No Baths. Do not soak wound. D. Make walking a part of your daily routine. Be up as much as comfortable with rest periods throughout the day. Rest with leg elevation is very important. Use the ice wrap frequently for the first 3-4 weeks. E. There are no restrictions on activities. You may ride in a car, shop, participate in pharmacy benefit manager and all social activities. F. Wear the long elastic stockings (URIEL hose) 20 hours a day for one month after surgery. They can be removed several times a day for laundering and when showering. SPECIAL CARE INSTRUCTIONS: VERY IMPORTANT TO READ AND REVIEW A. Take Aspirin (blood thinning medications) as directed by your doctor. If on Coumadin, have a pro-time (blood test) drawn according to your doctor's instructions. This will tell the doctor how well the Coumadin is thinning your blood. B. There are a few signs you need to watch for after you are home. Call [facility] [place] if you notice any of the followin. Increased severe knee pain. Some pain is expected especially when you exercise. 2. Increased swelling in your leg or knee; pain or swelling of the calf muscle in either lower leg. 3. Any redness or fluid drainage from the incision. 4. Shortness of breath or chest pain. 5. A Temperature of 101 degrees F or greater. C. Please call [facility] at if you have any concerns or questions about your operation or recovery. The doctor or his nurse will return your call promptly. D. You must take antibiotics before dental work, bladder, bowel or other surgery. Your doctor will provide you with a permanent care to carry describing this precaution. FOLLOW UP VISIT: If appointment is not already scheduled: Please call [facility] to make a follow-up appointment for 2 weeks after your surgery at . Pending Studies at Discharge: No Stand-Alone Forms: [facility] [employer], Opioid Pain Management, Smoking Cessation Medications and DC Order Prescriptions: New aspirin 81 mg tablet,delayed release (DR/EC) 81 mg PO BID Qty: 60 RF: 0 aspirin 81 mg tablet,delayed release (DR/EC) 81 mg PO BID Qty: 60 RF: 0 acetaminophen [Tylenol Extra Strength] 500 mg tablet 1,000 mg PO Q6H Qty: 100 RF: 0 oxycodone 5 mg tablet 5 mg PO Q4H PRN (Reason: pain) Qty: 18 RF: 0 Continued celecoxib [Celebrex] 200 mg Capsule 200 mg PO BID RF: 0 atorvastatin 40 mg Tablet 40 mg PO QAM RF: 0 sertraline 50 mg Tablet 50 mg PO QAM RF: 0 omeprazole 20 mg Tablet,Delayed Release (Dr/Ec) 20 mg PO QAM RF: 0 Frame Essential Joint Health 1 dose PO DAILY RF: 0 Discontinued ibuprofen 200 mg Capsule 200 mg PO Q6H PRN (Reason: Pain) RF: 0 Discharge Orders: Discharge Order (Routine); Ordered 02/09/19 Ordered By: Uriah Odell/Other Patient Handouts: Knee How Works, Replacement Knee, Replacement Knee Home After, Replacement Knee First Month Admission Data Admit Date/Time: 02/07/19 09:42 Attending Provider: Reggie Elaine Admit Provider: Reggie Elaine Primary Care Provider: Evaristo Guillen I. Other Providers: [facility] Other Interventions: Discharge Summary Assessment (RN) Last Done: 02/09/19 10:32 DC Date/Time DO NOT enter until pt leaves facility: 02/09/19 11:58
== END 2019-02-09 11:58 | disposition home health service (06) | DRG 470 ==
LOC: ASU 05:03 → 3E 09:42

== ENCOUNTER 2024-01-03 09:19 | Observation (INO) ==
--- NOTE | 2023-11-28 12:26 | PAT Medication Instructions ---
Medication Instructions Date of Service November 28, 2023 Home Medications Frame Essential Joint Health 4 cap PO QAM atorvastatin 40 mg tablet (Lipitor) 40 mg PO QAM celecoxib 200 mg capsule (Celebrex) 200 mg PO BID omeprazole 20 mg tablet,delayed release 20 mg PO QAM sertraline 50 mg tablet (Zoloft) 50 mg PO QAM acetaminophen 500 mg tablet (Tylenol Extra Strength) 1,000 mg PO Q6H PRN pain naproxen sodium 220 mg tablet (Aleve) 880 mg PO DAILY ASK your surgeon for instructions celecoxib 200 mg capsule (Celebrex) 200 mg PO BID naproxen sodium 220 mg tablet (Aleve) 880 mg PO DAILY STOP taking 2 weeks before surgery (or as soon as possible if surgery is within 2 weeks) Frame Essential Joint Health 4 cap PO QAM Take morning of surgery With a small sip of water, OTHERWISE NOTHING TO EAT OR DRINK AFTER MIDNIGHT: atorvastatin 40 mg tablet (Lipitor) 40 mg PO QAM omeprazole 20 mg tablet,delayed release 20 mg PO QAM sertraline 50 mg tablet (Zoloft) 50 mg PO QAM acetaminophen 500 mg tablet (Tylenol Extra Strength) 1,000 mg PO Q6H PRN pain (if needed) Take evening before surgery acetaminophen 500 mg tablet (Tylenol Extra Strength) 1,000 mg PO Q6H PRN pain (if needed) Other Notes If you have any questions please call us at [phone] or [phone] or [phone] or [phone]
--- NOTE | 2023-12-06 14:30 | Anesthesiology Consultation ---
Date of Service December 06, 2023 Assessment & Plan (1) Encounter for pre-operative examination: - Infectious disease screening: Per assessment on 12/06/23: No known recent infectious disease contacts or current infectious disease symptoms. - Outpatient joint assessment: Pt currently scheduled for inpatient pathway. If surgeon requests review for outpatient joint pathway, patient is an acceptable candidate for outpatient joint program from anesthesia standpoint pending surgeon's office assessment that patient is motivated, has good support and completes Same Day Joint Program preop requirements. - S/P Right TKA (02/07/19): "Under sedation, SAB attempted, unable to get CSF. Aborted. Plan GA." > LMA#4, atraumatic at [facility] Chart Review Chart Review: Acceptable Risk for Surgery and Patient seen in Pre Admission Testing Teaching & Discussion Pre-Anesthesia Teaching/Discussion Notes: Instructed NPO after midnight before surgery,except medications with 15 cc of water. Medication instructions provided according to the PAT guidelines. History Surgery Operation Date: 01/03/24 13:45 Proposed Procedures p Left Knee Total Knee Arthroplasty - Deejay Young MD Height/Weight Height: 5 ft 4 in Weight: 89.4 kg Allergies Allergy/AdvReac Type Severity Reaction Status Date / Time No Known Allergies Allergy Verified 11/27/23 14:30 Medications Home Medications Medication Instructions Recorded Confirmed Last Taken Frame Essential Joint Health 4 cap PO QAM 01/01/19 11/27/23 01/24/19 07:00 atorvastatin 40 mg tablet (Lipitor) 40 mg PO QAM 01/01/19 11/27/23 02/06/19 07:30 celecoxib 200 mg capsule (Celebrex) 200 mg PO BID 01/01/19 11/27/23 01/30/19 07:00 omeprazole 20 mg tablet,delayed 20 mg PO QAM 01/01/19 11/27/23 02/07/19 04:00 release sertraline 50 mg tablet (Zoloft) 50 mg PO QAM 01/01/19 11/27/23 02/06/19 07:30 acetaminophen 500 mg tablet 1,000 mg PO Q6H PRN pain 11/27/23 11/27/23 Unknown (Tylenol Extra Strength) naproxen sodium 220 mg tablet 880 mg PO DAILY 11/27/23 11/27/23 Unknown (Aleve) Past Medical History Medical History Anxiety GERD (gastroesophageal reflux disease) controlled History of breast cancer s/p bilateral mastectomy (no chemo/no XRT) Hyperlipidemia Obesity Osteoarthritis Exercise / Class Metabolic Activity II 4-5 Yardwork/Stairs/Walk up hill (one FS: No CP, no SOB) Past Surgical History Surgical History History of ankle surgery Left History of arthroscopy of right knee History of arthroscopy of right shoulder History of bilateral mastectomy History of colonoscopy History of hernia repair History of reconstruction of both breasts Hx of total knee replacement Right TKA (02/07/19): "Under sedation, SAB attempted, unable to get CSF. Aborted. Plan GA." > LMA#4, atraumatic at [facility] PONV (postoperative nausea and vomiting) Past Anesthesia History No Hx of Anesthesia Complications and No Family Hx of Anesthesia Complications History of PONV History of PONV and Hx of Motion Sickness (Occasional) Social History Smoking Status: Never smoker Do You Dip or Chew Tobacco: No Hx Alcohol Use: No Hx Substance Use: No substance use type: does not use Review of Systems Patient denies chest pain, shortness of breath, dyspnea on exertion, fever, chills, cough, wheezing, palpitations. Physical Exam Vital Signs BP 131/86 P 66 TEMP 97.9 SP02 96%RA RESP 18 Physical Full cervical extension range of motion. Full TMJ range of motion. TMD 3.5 finger breaths Mallampati Score III Dentition: intact Lungs: clear throughout to auscultation Cardiac: regular rate and rhythm, no murmurs noted Spine: normal Carotid arteries: negative bruit Extremities: no LE edema Lab Results Anesthesia Preop Results Results Anesthesia Widget: WBC 6.85 K/ul (4.8-10.8) 12/06/23 Hgb 11.7 g/dl (12.0-16.0) L 12/06/23 Hct 35.5 % (37.0-47.0) L 12/06/23 Plt 359 K/uL (130-400) 12/06/23 Na 138 mmol/L (136-145) 12/06/23 K 4.1 mmol/L (3.5-5.1) 12/06/23 Cl 105 mmol/L (98-107) 12/06/23 CO2 24 mmol/L (21-32) 12/06/23 BUN 21 mg/dl (6-23) 12/06/23 Creat 0.60 mg/dl (0.6-1.2) 12/06/23 Glucose Level 86 mg/dl (70-99(Fasting)) 12/06/23 PT 10.3 Seconds (9.0-12.0) 12/06/23 PTT 27 Seconds (21-31) 12/06/23 INR 0.9 (0.9-1.1) 12/06/23 Urine Color Yellow 12/06/23 Urine Appearance Cloudy (Clear) A 12/06/23 Urine pH 6.0 (4.5-7.5) 12/06/23 Urine Specific [place] 1.024 (1.000-1.030) 12/06/23 Urine Protein Trace (Negative) H 12/06/23 Urine Glucose (UA) Negative (Negative) 12/06/23 Urine Ketones Negative (Negative) 12/06/23 Urine Blood 1+ (Negative) H 12/06/23 Urine Nitrite Negative (Negative) 12/06/23 Urine Bilirubin Negative (Negative) 12/06/23 Urine Urobilinogen Negative (Negative) 12/06/23 Urine Leukocyte Esterase 3+ (Negative) H 12/06/23 Urine WBC (Auto) 6-10 /hpf (0-5) H 12/06/23 Urine RBC (Auto) 3-5 /hpf (0-2) H 12/06/23 Urine Hyaline Casts (Auto) 3-5 /lpf (0-2) H 12/06/23 Urine Epithelial Cells (Auto) 11-20 /hpf (0-2) H 12/06/23 Urine Bacteria (Auto) 1+ (None Seen) H 12/06/23 Blood Type O Positive 12/06/23 Antibody Screen NEGATIVE 12/06/23 Testing Laboratory Results Surgeon's office made aware of abnormal UA* Electrocardiogram Date: 12/06/23 NSR at 64bpm. "Normal ECG" Chest X-Ray Date: 12/06/23 FINDINGS: Cardiac silhouette is enlarged. No pneumothorax, pleural effusion or airspace consolidation. Lumbar levoscoliosis. Surgical clips project over the left breast. IMPRESSION: No acute process.
--- NOTE | 2023-12-31 14:10 | History & Physical Report ---
Date of Service December 31, 2023 Assessment & Plan (1) Osteoarthritis of left knee: Plan: End-stage osteoarthritis left knee medial compartment most severe. Patient had multiple injections which are not helping as much anymore. Patient has had a right knee replacement with good success. Proceed with similar replacement left knee which is a Webber & Nephew journey type total knee replacement. Osteoarthritis type: primary Qualified Code(s): M17.12 - Unilateral primary osteoarthritis, left knee History of Present Illness Chief Complaint: Chronic left knee pain Primary Care Provider: Evaristo Guillen MD 63 female with chronic left knee pain progressive over time failed conservative management. Patient denies headaches, sweats, fevers, chills, double vision, blurred vision, cough, sore throat, dysphagia, chest pain, sob, wheezing, n/v/d/c, numbness, tingling, fatigue, urinary symptoms, mood disorders. ROS positive for acid reflux, high cholesterol, obesity, breast cancer, difficulty waking up from anesthesia. Allergies Allergy/AdvReac Type Severity Reaction Status Date / Time No Known Allergies Allergy Verified 11/27/23 14:30 Home Medications Medication Instructions Recorded Confirmed Type Frame Essential Joint Health 4 cap PO QAM 01/01/19 11/27/23 History atorvastatin 40 mg tablet (Lipitor) 40 mg PO QAM 01/01/19 11/27/23 History celecoxib 200 mg capsule (Celebrex) 200 mg PO BID 01/01/19 11/27/23 History omeprazole 20 mg tablet,delayed 20 mg PO QAM 01/01/19 11/27/23 History release sertraline 50 mg tablet (Zoloft) 50 mg PO QAM 01/01/19 11/27/23 History acetaminophen 500 mg tablet 1,000 mg PO Q6H PRN pain 11/27/23 11/27/23 History (Tylenol Extra Strength) naproxen sodium 220 mg tablet 880 mg PO DAILY 11/27/23 11/27/23 History (Aleve) Past Med/Surg History Problem List (Updated 12/31/23 @ 14:14 by Deejay Young MD) Osteoarthritis of left knee Encounter for pre-operative examination Medical History Obesity Anxiety Osteoarthritis GERD (gastroesophageal reflux disease) controlled History of breast cancer s/p bilateral mastectomy (no chemo/no XRT) Hyperlipidemia Surgical History PONV (postoperative nausea and vomiting) History of arthroscopy of right shoulder Hx of total knee replacement Right TKA (02/07/19): "Under sedation, SAB attempted, unable to get CSF. Aborted. Plan [place]." > LMA#4, atraumatic at [facility] History of arthroscopy of right knee History of hernia repair History of ankle surgery Left History of reconstruction of both breasts History of colonoscopy History of bilateral mastectomy Social History Smoking Status: Never smoker Second Hand Exposure: No; Do You Dip or Chew Tobacco: No; Tobacco Cessation Education Requested by Patient: No Hx Alcohol Use: No Hx Substance Use: No Preferred Language: Amharic Communication Ability: Effective Paint Stockman Required: No Beliefs That Will Affect Care: None marital status: Current Living Situation: Spouse Other Information That Helps Us Care for You: No Feels Safe at Home: Yes Safety Concerns: Feels Safe At This Time Assistive Devices: Glasses Review of Systems All systems reviewed & are unremarkable except as noted in HPI & below Physical Exam Constitutional: WD/WN, vitals as above Respiratory: normal respiratory effort; no respiratory distress Cardiovascular: Rate/Rhythm: regular rate and regular rhythm Musculoskeletal: Left knee exam demonstrates a varus knee mild effusion mild swelling medial joint line tenderness no instability 0 through 120 degrees range of motion but painful range of motion. Distal neurological circulation sensorimotor exam intact. Skin: no rashes, warm and dry Neurologic: normal touch/pain/proprioception Psychiatric: A+Ox3, euthymic affect Results & Data Diagnostic Findings Radiographs demonstrate significant thinning medial compartment most likely grade 4 osteoarthritis with patellofemoral and medial compartment osteoarthritis. Patient has a well aligned Webber [employer] Nephew journey knee replacement on her opposite right knee.
[~2024-01-03 09:19] MED LIST: BUPIVACAINE 0.5 % 5 MG/1 ML PF 10ML VIAL ONE; LIDOCAINE 2% 2 ML VIAL/AMP(20MG/ML) INFIL ONE; MIDAZOLAM HCL 1 MG/ML 2ML VIAL ONE; ONDANSETRON INJ 2 MG/ML 2 ML VIAL ONE; PROPOFOL IV EMULSION 10 MG/ML 20 ML VIAL IV ONE; ROPIVACAINE 0.5% 5 MG/ML 30 ML VIAL ONE
[2024-01-03] MEDS: LR 500ML BOLUS, THEN 15ML/HR IV SCH (10:07)
[2024-01-03] MEDS: GABAPENTIN 600 MG DOSE PO SCH (10:08)
[2024-01-03] MEDS: ACETAMINOPHEN 500 MG TAB PO SCH ×2 (10:08→18:02)
[2024-01-03] MEDS: FAMOTIDINE 20 MG TAB PO SCH (10:09)
[2024-01-03] MEDS: CeleBREX 200 MG CAP PO SCH (10:09)
[2024-01-03] MEDS: METOCLOPRAMIDE HCL 10 MG TABLET PO SCH (10:09)
[2024-01-03] MEDS: dexAMETHasone**PF** 10 MG/ML VIAL IV SCH (10:10)
--- NOTE | 2024-01-03 10:33 | History & Physical Bridge Note ---
Date of Service January 03, 2024 History & Physical Bridge Note I have examined the patient, reviewed the History & Physical and in the interval since the performance of the History & Physical I have noted the following changes of clinical significance: no changes noted
[2024-01-03] MEDS: TRANEXAMIC ACID 1,000 MG **IV Pre-op IV SCH (10:40)
[2024-01-03] MEDS: ceFAZolin 2000MG 2,000 MG/15 ML SYR IV SCH ×2 (11:08→20:23)
[2024-01-03] MEDS ORDERED: fentaNYL citrate PF 100 MCG/2 ML VIAL ONE (11:09)
[2024-01-03] MEDS ORDERED: KETAMINE HCL 10MG/ML SYR ONE (11:09)
[2024-01-03] MEDS ORDERED: HYDROmorphone INJ 2 MG/ML SYR/VIAL ONE (12:07)
[2024-01-03] MEDS: ORTHO JOINT ANESTHETIC ONE (12:12)
[2024-01-03] MEDS: TRANEXAMIC ACID 1,000 MG **IV Intra-op IV SCH (12:56)
[2024-01-03] MEDS: ROPIVACAINE 0.5% HCL/PF 246 MG, Ketorolac (*for OR use only*) 30 MG in SODIUM CHLORIDE ... INFIL SCH (13:00)
--- NOTE | 2024-01-03 13:19 | Operative Report ---
Post Operative Report Pre & Post Diagnosis Operation Date: 01/03/24 11:20 Pre-Op Diagnosis: Left Knee Osteoarthritis Post-Op Diagnosis: Left Knee Osteoarthritis I identified the patient and participated in the time-out.: Yes Procedure Operation Date: 01/03/24 11:20 Actual Procedures p Left Total Knee Arthroplasty(Left), application mauricio and Acticoat superficial wound VAC- Deejay Young MD Surgeon Deejay Young MD [employer]yst Manufacturing Operator Uriah MAZARIEGOS Estimated Blood Loss 5 Findings Consistent with Post-Op Diagnosis Specimens Bone cuts Drains 2 Hemovac Anesthesia Type General Regional Complications none Disposition Disposition: Recovery Room Indications 63-year-old female with chronic progressive osteoarthritis of the left knee. Previous right knee replacement in the past. Radiographs left knee demonstrates mipq-gr-ntpe medial compartment and has moderately advanced patellofemoral osteoarthritis. Description of Procedure The patient was taken to the operating room and anesthetized under attempted spinal followed by general anesthetic and regional block anesthesia. Patient was placed supine on the the operating table. A pneumatic tourniquet was placed about the left upper thigh. The knee exam demonstrated 0 through 125 degrees range of motion no instability no pseudolaxity with a varus knee and patellofemoral crepitation. The involved leg was elevated exsanguinated with Esmarch bandage and the pneumatic tourniquet was raised to 325 millimeters mercury. A longitudinal incision was made across the anterior knee. Skin flaps were elevated. An incision was made into the medial retinaculum and extended up into the mid third of the quadriceps tendon and extended down to the tibial tubercle. Intra-articular findings demonstrated medial compartment and patellofemoral osteoarthritis with chronic oblique radial medial meniscus tear [id number]-rgip in the medial compartment and some areas of grade 4 and grade III chondromalacia of the patellofemoral joint as well. There were tricompartmental osteophytes. The knee was exposed by excising cruciate ligaments and menisci. The infrapatellar fat pad was resected. The fat pad over the anterior femur at the upper aspect of the articular surface was resected for placement of the component in that area. A subperiosteal peel lateral release was performed around the patella. The [employer] journey 2.0 posterior stabilized total knee arthroplasty system was utilized for the procedure. The custom femoral cutting guide was pinned in position. The distal femoral cut was made. The size 4, 5 in 1 cutting block was placed. The anterior posterior and chamfer cuts were made. Bone quality was excellent and hard. The knee was extended and a free hand cut technique was performed to the patella. The patella width was measured and the width was reproduced using a 29 symmetrical patella component. The excess lateral facet was beveled off to prevent any impingement. 3 drill holes are made for the patella component pegs. The tibia was then subluxed. The custom tibial cutting block was pinned in position and the proximal tibial cut was made with the oscillating saw. Flexion and extension gaps were balanced. Medial and posterior medial releases were required. The size 3 tibial trial was maximally externally rotated in line with the tibial tubercle and pinned in position. This component was upsized to 3 due to better coverage with a 3 than the templated size 2. The punch for the stem was used. The femoral trial was inserted and centered the notch cutting devices were used and the collet was placed. Tibial trials were used for the insert. The size 12 trial gave balanced ligaments through full range of motion. Patella tracking was assessed with range of motion. The patella tracked with some lateral tilt. I felt we should do lateral release which was performed leaving the synovium intact and preserving the geniculate vessels after which the patella tracked centrally. The trials were removed. The Orthomix anesthetic cocktail was injected per protocol. The cut bone surfaces and soft tissue were copiously irrigated with pulsatile lavage saline solution. Aqua mantis was used for and hemostasis required. The final components were cemented with Refobacin cement. The final components were Web[employer]hew journey 2.0 posterior stabilized size 4 left femoral component, size 3 left tibial component, a 12 mm left posterior stabilized tibial polyethylene and 29 mm symmetrical polyethylene patella. Xperience irrigation was placed over metal tray prior to polyethyle insertion. After the cement cured, the knee was then copiously irrigated with pulsatile lavage Xperience solution. 2 drains were brought out laterally connected to Hemovac. The quadriceps tendon and medial retinaculum were closed with #2 FiberWire in the distal quad tendon medial retinaculum area and at the apex of the quad tendon split proximally and 1 a dditional dfsjna-zq-wzotq suture at the level of the tibial polyethylene. A 0 strata fix was used from the superior incision down to the inferior patella and below the patella interrupted [id number]-ug-[id number] #1 Vicryl sutures were utilized. The knee was taken through full range of motion and repair was secure. Knee range of motion was 0 through 130 degrees. the subcutaneous tissues were closed with 2-0 Vicryl sutures. The skin was closed with surgical rakel. A mauricio and Acticoat superficial wound VAC was applied. The tourniquet was let down and the patient had good capillary refill to the extremity. The patient tolerated the procedure well. My physician parking assistant Uriah MAZARIEGOS participated as urology physician assistant and was integral part in all aspects of the procedure including prepping, draping, leg positioning, soft tissue retraction, instrument management and assisted in the closure , mauricio and Acticoat superficial wound VAC application and will participate in postoperative care the patient. I attest to the content of the Intraoperative Record and any orders documented therein. Any exceptions are noted below.
[2024-01-03] MEDS ORDERED: ATROPINE SULFATE 0.1 MG/ML 10ML SYR IV PRN (14:04)
[2024-01-03] MEDS ORDERED: fentaNYL citrate PF 100 MCG/2 ML VIAL IV PRN (14:04)
[2024-01-03] MEDS ORDERED: ePHEDrine sulfate 50 MG/ML AMP IV PRN (14:04)
[2024-01-03] MEDS ORDERED: ONDANSETRON INJ 2 MG/ML 2 ML VIAL IV PRN (14:04)
--- NOTE | 2024-01-03 14:51 | XRay Report ---
XR knee LT 1 or 2V routine HISTORY: 63 years-old Female Surgical Post Op left knee total joint arthroplasty COMPARISON: None TECHNIQUE: 2 views of the left knee FINDINGS: Total joint arthroplasty with patellar resurfacing. Anterior midline skin rakel with expected posto perative soft tissue swelling, deep tissue air with surgical drainage catheter. IMPRESSION: Total joint arthroplasty with expected postoperative changes. ACT 112: Negative or not required by law. The above report was generated using voice recognition software. It may contain grammatical, syntax o r spelling errors. Electronically signed by: Layo Schuler M.D. 01/03/2024 2:49 PM
--- NOTE | 2024-01-03 15:26 | Anesthesiology Progress Note ---
Date of Service January 03, 2024 Anesthesia Post Procedure Vital Signs Vital Signs: Temp Pulse Resp BP Pulse Ox O2 Del Method O2 Flow Rate 01/03/24 15:15 71 13 150/80 H 94 Nasal Cannula 2 01/03/24 15:05 76 14 166/85 H 95 Oxymask 6 01/03/24 14:55 36.4 C L 78 13 165/91 H 95 Oxymask 15 01/03/24 14:45 75 12 158/101 H 93 Oxymask 15 01/03/24 14:35 82 12 167/87 H 93 Oxymask 15 01/03/24 14:25 79 13 159/93 H 95 Oxymask 15 01/03/24 14:15 71 12 149/86 H 94 Oxymask 15 01/03/24 14:05 71 13 142/83 H 92 Oxymask 15 01/03/24 13:55 71 18 142/83 H 92 Oxymask 15 01/03/24 13:50 67 19 107/61 91 Oxymask 15 01/03/24 13:47 36.5 C 70 12 107/61 88 L Oxymask 11 01/03/24 09:53 36.8 C 66 20 161/86 H 98 Room Air Transfer of Care Handoff Completed per policy Notes Mental Status: alert / awake / arousable Patient Amnestic to Procedure: Yes Nausea / Vomiting: adequately controlled Pain: adequately controlled Airway Patency, RR, SpO2: stable & adequate BP & HR: stable & adequate Hydration State: stable & adequate Anesthetic Complications: no major complications apparent and Pt Satisfied with anesthetic care
[2024-01-03] MEDS ORDERED: NALOXONE HCL 0.4 MG/1 ML VIAL/CARP IV PRN (16:13)
[2024-01-03] MEDS ORDERED: bisacodyL 10 MG SUPP PR PRN (16:13)
[2024-01-03] MEDS ORDERED: diphenhydrAMINE Capsule 25 MG CAP PO PRN (16:13)
[2024-01-03] MEDS ORDERED: METOCLOPRAMIDE HCL INJ 5 MG/ML 2 ML VIAL IV PRN (16:13)
[2024-01-03] MEDS ORDERED: MAGNESIUM HYDROXIDE SUSP 30 ML UDC PO PRN (16:13)
[2024-01-03] MEDS ORDERED: HYDROmorphone INJ 0.5 MG/0.5 ML SYR IV PRN (16:13)
[2024-01-03] MEDS ORDERED: ALUMINUM/MAGNESIUM SUSP 30 ML UDC PO PRN (16:13)
--- OUTSIDE RECORDS SUMMARY | 2024-01-03 17:05 | External Medical Summary | Summary of Care ---
Author Name Unknown Organization [facility] Address [address] [place] [address] Phone [phone] Care Team Providers Care Hourly Sign Language Interpreter Name Role Phone Landy Bejarano MD Primary Care Provider Reason for Visit * Reason Onset Date Comments Medication Refill 12/21/2023 Encounter Details Date Type Department Care Team (Late st Contact Info) Description 12/21/2023 Refill [place] [address] [place] [address] [phone] Landy Bejarano MD [facility] [address] [place] [address] [phone] AIDEE (generalized anxiety disorder); Hyperlipidemia, unspecified hyperlipidemia type Allergies No known active allergiesdocumented as of this encounter (statuses as of 12/22/2023) Medications Medication Sig Dispensed Refills Start Date End Date Status GLUCOSAMINE 1500 COMPLEX PO CAPS 1 cap four times a day Active Sodium Hyaluronate 60 MG/3ML Intra-articular Prefilled Syringe (Durolane) Injection of contents of prefilled syringe intra-articula rly one time. 3 mL 04/12/2023 Active Celecoxib 200 MG Oral Capsule (CeleBREX)Indicatio ns:Arthralgia of both knees Take 1 Capsule by mouth in the morning and 1 Capsule before bedtime. 180 Capsule 2 11/16/2023 Active Omeprazole 20 MG Oral Capsule Delayed Release (PriLOSEC)Indicatio ns:GERD (gastroesophageal reflux disease) Take 1 Capsule by mouth in the morning and 1 Capsule in the evening. 1 hour before the first meal of the day. 180 Capsule 2 11/16/2023 Active Sertraline HCl 50 MG Oral Tablet (Zoloft)Indications :AIDEE (generalized anxiety disorder) Take 1 Tablet by mouth in the morning. 90 Tablet 3 12/22/2023 Active Atorvastatin Calcium 40 MG Oral Tablet (Lipitor)Indication s:Hyperlipidemia, unspecified hyperlipidemia type Take 1 Tablet by mouth in the morning. 90 Tablet 3 12/22/2023 Active Sertraline HCl 50 MG Oral Tablet (Zoloft)Indications :AIDEE (generalized anxiety disorder) Take 1 Tablet by mouth in the morning. 90 Tablet 3 05/18/2023 4 Discontinue d(Refill) Atorvastatin Calcium 40 MG Oral Tablet (Lipitor)Indication s:Hyperlipidemia, unspecified hyperlipidemia type Take 1 Tablet by mouth in the morning. 90 Tablet 3 09/04/2023 4 Discontinue d(Refill) documented as of this encounter (statuses as of 12/22/2023) Active Problems Problem Noted Date Diagnosed Date Status post total right knee replacement 020 Gastroesophageal reflux disease without esophagi tis 10/02/2019 Obesity, Class I, BMI 30.0-34.9 (see actual BMI) 08/06/2015 History of breast cancer 04/01/2012 Overview: Left, [id number], Feb 2012 Right, [id number], Feb 2012 Bilat mastectomy 06/01/12 - reconstruction w/ abdominal flap Hyperlipidemia Overview: Lipitor 40mg - myalgias at 80mg documented as of this encounter (statuses as of 12/22/2023) Resolved Problems Problem Noted Date Diagnosed Date Resolved Date Screen for colon cancer 03/26/201509/2017 Overview: Colonoscopy 03/26/15: normal - 10 yr Arthralgia of both knees 01/29/2015 Overview: Followed by Dr. Rosales - has had injections in the left knee but was told her right knee is bone on bone. Is to start PT August History of fracture of left ankle 01/29/2015 07/28/2016 Overview: ORIF left ankle fx 02/2014 Encounter for routine gyneco logical examination 07/25/2014 09/27/2017 Overview: Routine care by Dr. Luis ICD-10 update of inactive term documented as of this encounter (statuses as of 12/22/2023) Immunizations Name Administration Dates Next Due Seasonal Influenza Vac., MDV, IM, 0.5 mL (Fluzon e) 01/24/2014 Seasonal Influenza, PF, 6 M & above, IM , (FluLaval or Fluzone) 12/10/2019,12/28/2017 Seasonal Influenza, Quadrivalent, No Preserve, I M 01/29/2015 TDAP (age 10 and older)(Boostrix) 11/10/2016 documented as of this encounter Social History Tobacco Use Types Packs/Day Years Used Date Smoking Tobacco: Never Smokeless Tobacco: Never Alcohol Use Standard Drinks/Week Comments No 0 (1 standard drink = 0.6 oz pur e alcohol) PHQ-2 Answer Date Recorded PHQ Adult Total Score 0 07/14/2023 Hunger Vital Sign Answer Date Recorded Within the past 12 months, y ou worried that your food would run out before you got the money to buy more. Never true 07/14/19 24 Within the past 12 months, t he food you bought just didn't last and you didn't have money to get more. Never true 07/14/2023 Childcare Answer Date Recorded Do you feel overwhelmed with taking care of a child, family member or friend? No 07/14/2023 Does your family need help f inding childcare? (Household - for ages 0-17 years) Not on file 07/14/2023 Clothing Answer Date Recorded Have you been unable to get clothing when it was really needed? No 07/14/2023 Is your family able to get c lothes or diapers when needed? (Household - for ages 0-17 years) Not on file 07/14/2023 Personal Safety Answer Date Recorded Do you feel unsafe or have concerns for your saf ety? No 07/14/2023 Do you have concerns for you r family's safety? (Household - for ages 0-17 years) Not on file 07/14/2023 Utilities Answer Date Recorded Do you have trouble paying y our heating, water, or electric bill? No 07/14/2023 Is your family able to pay t he heat, water, or electric bill? (Household - for ages 0-17 years) Not on file 07/14/2023 Does your family have access to good internet? (Household - for ages 0-17 years) Not on file 07/14/2023 Employment Status Answer Date Recorded Are you unemployed or without regular income? No 07/14/2023 Does the household have a re gular source of income? (Household - for ages 0-17 years) Not on file 07/14/2023 Social Connections Answer Date Recorded How often do you feel lonely or isolated from th ose around you? Never 07/14/2023 Financial Resource Strain Answer Date R ecorded Do you have any trouble payi ng for your medications, or do you think you might in the future? No 07/14/2023 Does your family have troubl e paying for medicine? (Household - for ages 0-17 years) Not on file 07/14/2023 Transportation Needs Answer Date Record ed READ ONLY Do you have troubl e getting a ride to medical visits or work? Never True 07/14/2023 Does your family have a hard time getting a ride to doctors visits? (Household - for ages 0-17 years) Not on file 07/14/2023 Has lack of transportation k ept you from medical appointments, meetings, work, or from getting things needed for daily living? Check all that apply. (Adult - for ages 18 years and over) Not on file 07/14/2023 Do you (or your family) have trouble finding or paying for a ride (transportation)? (Household - for ages 0-17 years) Not on file 07/14/2023 Housing Stability Answer Date Recorded Do you currently live in a s helter or have no steady place to sleep at night? No 07/14/2023 READ ONLY Do you think you a re at risk of becoming homeless? No 07/14/2023 Does your family worry about paying for your home or becoming homeless? (Household - for ages 0-17 years) Not on file 0 07/14/2023 Are you homeless or worried that you might be in the future? (Adult - for ages 18 years and over) Not on file Are you (or your family) pa eless or worried that you might be in the future? (Household - for ages 0-17 years) Not on file Food Insecurity Answer Date Recorded Do you need food for this week? No 07/14/2023 Are you able to get enough f ood for your family? (Household - for ages 0-17 years) Not on file 07/14/2023 Does your family need food t his week? (Household - for ages 0-17 years) Not on file 07/14/2023 Do you always have enough fo od for your family? (Household - for ages 0-17 years) Not on file 07/14/2023 Sex and Gender Information Value Date Recorded Sex Assigned at Female 09/28/2018 7:58 AM EDT Gender Identity Female 09/28/2018 7:58 AM EDT Sexual Orientation Straight 09/28/2018 7: 58 AM EDT Job Start Date Occupation Industry Not on file Not on file Not on file documented as of this encounter Miscellaneous Notes * Telephone Encounter - Dk Barron RPh - 12/22/2023 1:39 PM EDT Signed Prescriptions: Disp Refills Sertraline HCl 50 MG Oral Tablet (Zoloft) 90 Tab*3 Sig: Take 1 Tablet by mouth in the morning.Authorizing Provider: LANDY BEJARANO User: DK BARRON Atorvastatin Calcium 40 MG Oral Tablet (Li*90 Tab*3 Sig: Take 1 Tablet by mouth in the m orning.Authorizing Provider: LANDY BEJARANO User: DK BARRON documented in this encounter Plan of Treatment Upcoming Encounters Date Type Department Care Team ([place] mcguire Contact Info) Description 12/28/2023 10:20 AM EST Office Visit [facility] [address] [place] [phone] Landy Bejarano MD [address] [facility] [address] [place] [phone] 07/18/2024 8:00 AM EDT Office Visit [facility] [address] [place] [id number] Landy Bejarano MD [address] [facility] [address] [place] [address] Scheduled Procedures Name Priority Associated Diagnoses Date/Ti me COLONOSCOPY FLEXIBLE PROXIMAL DIAGNOSTIC Recall Colon cancer screening Health Maintenance Due Date Last Done Comments HPV/Co-Test 06/18/1989 Cologuard 06/18/2004 Fecal Occult Blood Test 06/18/2004 Sigmoidoscopy 06/18/2004 Zoster Vaccines (1 of 2) 06/18/2009 Cervical Cancer Screening 05/06/2022 Pap Smear 05/06/2022 05/07/2019, 1205/2017, 12/13/2016, Additional history exists COVID-19 Vaccine ( season) 2023 Influenza Vaccine (FLU shot) (#1) 2023 12/10/2019, 12/28/2017, 01/29/2015, Additional history exists Depression Screening 07/13/2024 07/14/2023 Colonoscopy 03/26/2025 03/26/2015, 03/26/2015 Colorectal Cancer Screening 03/26/2025 DTap/Tdap Vaccines (2 - Td or Tdap) 11/10/2026 11/10/2016 Diabetes Screening 12/05/2026 12/06/2023, 0 06/23/2023, 10/13/2021, Additional history exists Lipid Panel 06/22/2028 06/23/2023, 0805/2021, 10/12/2020, Additional history exists HPV (Gardasil) Vaccine Aged Out No lo nger eligible based on patient's age to complete this topic Hepatitis B Vaccine Aged Out No longe r eligible based on patient's age to complete this topic MENINGOCOCCAL (MENACTRA/MENVEO) Aged Out No longer eligible based on patient's age to complete this topic Pneumococcal Vaccine: Pediatrics (0 to 5 Years) and At-Risk Patients (6 to 64 Years) Aged Out No longer eligible based on patient's age to complete this topic documented as of this encounter Medical Devices Implanted Type Area Director Packaging Device Identifier Shelf Expiration Date Model / Serial / Lot Mesh Prolit Hernia [id number] - [id number] [place]planted:Q[place]: 1 [place] 06[place]01/[place] [facility] [place] Abdomen [employer] 05/21/2015 [id number] / / [id number] Mesh C-Qur V-Patch 8cm [id number] - [id number] Implanted:Qty: 1 on 06/17/2014 by Johny Hernandez MD [place] [facility] [place]A: Abdomen [employer] 12/20/2016 [id number] / / [id number] documented as of this encounter Visit Diagnoses Diagnosis AIDEE (generalized anxiety disorder) Generalized anxiety disorder Hyperlipidemia, unspecified hyperlipidemia type documented in this encounter Advance Directives * Full Code (Latest Code Status on File) Date Activated Date Inactivated Comments 06/17/2014 2:30 PM 06/18/2014 5:41 PM Question Answer Comments Discussion of Advance Directives occurred with: Not Discussed Does the patient have a Living Will? No Does the patient have Health Care Power of Attor rowena? No * Full Code Date Activated Date Inactivated Comments 06/01/2012 4:23 PM 06/06/2012 4:10 PM This order r eflects the patients wishes and were consensually agreed upon. * Full Code Date Activated Date Inactivated Comments 06/01/2012 6:55 AM 06/01/2012 4:23 PM This order r eflects the patients wishes and were consensually agreed upon. Question Answer Comments Discussion of Advance Directives occurred with: Not Discussed Does the patient have a Living Will? No Does the patient have Health Care Power of Attor rowena? No Care Teams Hourly Sign Language Interpreter Relationship Specialty Start Date End Date Lnady Bejarano MD [address] [facility] [place] [address] PCP - General Family Medicine 09/27/17 documented as of this encounter
--- OUTSIDE RECORDS SUMMARY | 2024-01-03 17:05 | External Medical Summary | Summary of Care ---
Author Name Unknown Organization [facility] Address [address] [place] [address] Phone [phone] Care Team Providers Care Mexican Food Maker Hand Name Role Phone Evaristo Guillen MD Primary Care Provider Reason for Visit * Reason Comments Follow Up Pt arrives today for a f/u to review lab work. Voices no additional concerns Encounter Details Date Type Department Care Team (Late st Contact Info) Description 12/28/2023 10:20 AM EST Office Visit [facility] [address] [place] [address] Evaristo Guillen MD [address] [place] [address] Preoperative clearance* Allergies No known active allergiesdocumented as of this encounter (statuses as of 12/29/2023) Medications GLUCOSAMINE 1500 COMPLEX PO CAPS 1 cap four times a day Active Sodium Hyaluronate 60 MG/3ML Intra-articular Prefilled Syringe (Durolane) Injection of contents of prefilled syringe intra-articul rosy one time. 3 mL 4 Active Celecoxib 200 MG Oral Capsule (CeleBREX)Indicati ons:Arthralgia of both knees Take 1 Capsule by mouth in the morning and 1 Capsule before bedtime. 180 Capsule 2 4 Active Omeprazole 20 MG Oral Capsule Delayed Release (PriLOSEC)Indicati ons:GERD (gastroesophageal reflux disease) Take 1 Capsule by mouth in the morning and 1 Capsule in the evening. 1 hour before the first meal of the day. 180 Capsule 2 4 Active Sertraline HCl 50 MG Oral Tablet (Zoloft)Indication s:AIDEE (generalized anxiety disorder) Take 1 Tablet by mouth in the morning. 90 Tablet 3 4 Active Atorvastatin Calcium 40 MG Oral Tablet (Lipitor)Indicatio ns:Hyperlipidemia, unspecified hyperlipidemia type Take 1 Tablet by mouth in the morning. 90 Tablet 3 4 Active documented as of this encounter (statuses as of 12/29/2023) Active Problems Problem Noted Date Diagnosed Date Status post total right knee replacement 020 Gastroesophageal reflux disease without esophagi tis 10/02/2019 Obesity, Class I, BMI 30.0-34.9 (see actual BMI) 08/06/2015 History of breast cancer 04/01/2012 Overview (08/06/2015): Left, [id number], Feb 2012 Right, [id number], Feb 2012 Bilat mastectomy 06/01/12 - reconstruction w/ abdominal flap Hyperlipidemia Overview (08/06/2015): Lipitor 40mg - myalgias at 80mg documented as of this encounter (statuses as of 12/29/2023) Resolved Problems Problem Noted Date Diagnosed Date Resolved Date Screen for colon cancer 03/26/201509/2017 Overview (03/26/2015): Colonoscopy 03/26/15: normal - 10 yr Arthralgia of both knees 01/29/2015 Overview (08/06/2015): Followed by Dr. Rosales - has had injections in the left knee but was told her right knee is bone on bone. Is to start PT August History of fracture of left ankle 01/29/2015 07/28/2016 Overview (01/29/2015): ORIF left ankle fx 02/2014 Encounter for routine gyneco logical examination 07/25/2014 09/27/2017 Overview (11/21/2016): Routine care by Dr. Luis ICD-10 update of inactive term documented as of this encounter (statuses as of 12/29/2023) Immunizations Name Administration Dates Next Due Seasonal [...] ages 0-17 years) Not on file 07/14/2023 Comments No Sex and Gender Information Value Date Recorded Sex Assigned at Female 09/28/2018 7:58 AM EDT Legal Sex Female 7:14 AM EST Gender Identity Female 09/28/2018 7:58 AM EDT Sexual Orientation Straight 09/28/2018 7: 58 AM EDT documented as of this encounter Last Filed Vital Signs Vital Sign Reading Time Taken Comments Blood Pressure 136/88 12/28/2023 10:33 AM EST Pulse 81 12/28/2023 10:33 AM EST Temperature 36.3 C (97.3 F) 12/28/2023 10:[address] Respiratory Rate 16 12/28/2023 10:33 AM EST Oxygen Saturation 97% 12/28/2023 10:33 AM EST Inhaled Oxygen Concentration - - Weight 89.9 kg (198 lb 3.2 oz) 12/28/2023 10:33 AM EST Height 155.6 cm (5' 1.25") 12/28/2023 10:[address] Body Mass Index 37.14 12/28/2023 10:33 AM EST documented in this encounter Progress Notes * Evaristo Guillen MD - 12/29/2023 11:08 PM EST Images from the original note were not included. Pre-Operative Medical Evaluation Procedure Information Type of Surgery: Knee replacement Referring Physician / Surgeon: Marlyn De Paz Department of Orthopaedics Brief History of Present Illness: Per Orthopaedics Review of Systems: Skin. Patient denies new or different rashes or skin breakdown. Eyes. Denies visual changes eye redness or eye discharge. Ear nose and throat. Denies sinus pain or teeth pain. Respiratory. Denies cough or hemoptysis. Cardiovascular. Denies paroxysmal nocturnal dyspnea dyspnea exertion. Gastrointestinal. Denies vomiting or melanotic stool. Genitourinary. Denies hematuria or dysuria. Constitutional. Denies fevers or weight loss Medical History Problem List: Status post total right knee replacement (12/10/2019) Gastroesophageal reflux disease without esophagitis (10/02/2019) Obesity, Class I, BMI 30.0-34.9 (see actual BMI) (08/06/2015) Screen for colon cancer (03/26/2015) Arthralgia of both knees (01/29/2015) History of fracture of left ankle (01/29/2015) Encounter for routine gynecological examination (07/25/2014) History of breast cancer (04/01/2012) Hyperlipidemia Current Medications Atorvastatin Calcium 40 MG Oral Tablet (Lipitor), 40 mg, Oral, Daily(AM) Sertraline HCl 50 MG Oral Tablet (Zoloft), 50 mg, Oral, Daily(AM) Celecoxib 200 MG Oral Capsule (CeleBREX), 200 mg, Oral, BID(AM/PM) Omeprazole 20 MG Oral Capsule Delayed Release (PriLOSEC), 20 mg, Oral, BID (0700,1900) GLUCOSAMINE 1500 COMPLEX PO CAPS, 1 cap four times a day Sodium Hyaluronate 60 MG/3ML Intra-articular Prefilled Syringe (Durolane), Injection of contents ofprefilled syringe intra-articularly one time. Allergies: Patient has no known allergies. Past Medical History: has a past medical history of History of breast cancer (04/01/2012), History of fracture of left ankle (01/29/2015), Hyperlipidemia, and Malignant neoplasm of breast (female), unspecified site (2012 left breast). Past Surgical History: has a past surgical history that includes breast biopsy-stereotactic; ligate/cut oviduct(s); mastectomy, simple, complete (06/01/2012); Sentinal Lymph Node Identification, Intraop (06/01/2012); breast reconstruction w/tram (06/01/2012); Repair Initial Incisional or Ventral Hernia; Reducible (N/A, 06/17/2014); implant mesh w/ abd hernia repr/debride (N/A, 06/17/2014); bimalleolar ankle fx w/ fixation (Left, 03/18/2014); Colonoscopy, Diagnostic (Rectum) (N/A, 03/26/2015); EGD, Flexible, Diagnostic (N/A, 12/17/2019); and EGD, Flexible, Diagnostic (N/A, 12/17/2019). Social History: reports that she has never smoked. She has never used smokeless tobacco. She reports that she does not drink alcohol and does not use drugs. Family History: family history includes Cancer (age of onset: 39) in her brother; Cancer (age of onset: 49) in her aunt (unspecified); Cancer (age of onset: 55) in her aunt (unspecified); Cancer (age of onset: 58) in her mother; Cancer (age of onset: 65) in her sister; Heart Disorder in her mother; No Past Hx in her sister; Stroke (age of onset: 62) in her brother; hypercholesterolemia in her brother, brother, and mother. Anesthesia History Type of Anesthesia: General Endotracheal and Caudal block Anesthesia reaction: No History of surgical complications: No Personal history of venous thromboembolic disease: No Physical Exam Vitals: 12/28/23 1033 Temp: 36.3 C (97.3 F) Pulse: 81 Resp: 16 SpO2: 97% BP: 136/88 BMI: 37.13 Physical Exam Constitutional: Appearance: Normal appearance. HENT: Head: Normocephalic. Right Ear: Tympanic membrane normal. Left Ear: Tympanic membrane normal. Mouth/Throat: Mouth: Mucous membranes are moist. Pharynx: Oropharynx is clear. No oropharyngeal exudate. Eyes: General: No scleral icterus. Right eye: No discharge. Left eye: No discharge. Extraocular Movements: Extraocular movements intact. Conjunctiva/sclera: Conjunctivae normal. Pupils: Pupils are equal, round, and reactive to light. Cardiovascular: Rate and Rhythm: Normal rate and regular rhythm. Pulmonary: Effort: Pulmonary effort is normal. Breath sounds: No wheezing, rhonchi or rales. Abdominal: Tenderness: There is no right CVA tenderness or left CVA tenderness. Musculoskeletal: Cervical back: Normal range of motion and neck supple. No tenderness. Right lower leg: No edema. Left lower leg: No edema. Lymphadenopathy: Cervical: No cervical adenopathy. Skin: General: Skin is warm and dry. Capillary Refill: Capillary refill takes less than 2 seconds. Neurological: Mental Status: She is alert and oriented to person, place, and time. Psychiatric: Mood and Affect: Mood normal. Behavior: Behavior normal. Labs reviewed and are significant for: Creatinine 0.6. EKG by my review is significant for: Pending Surgical Risk Scoring Revised Cardiac Risk Index (RCRI) High-risk type of surgery (examples include vascular and any open intraperitoneal or intrathoracic procedures): 0=No History of ischemic heart disease (history of myocardial infarction or positive exercise test, current compliant of chest pain considered to be secondary to myocardia ischemia, use of nitrate therapy, or ECG with pathological Q waves; do not count prior coronary revascularization procedure unless one of the other criteria for ischemic heart disease is present): 0=No History of heart failure: 0=No History of cerebrovascular disease: 0=No Diabetes mellitus requiring treatment with insulin: 0=No Preoperative serum creatinine >2.0 mg/dL (177 micromol/L): 0=No Pt has revised cardiac index score of: No Risk Factors- 0.4% (95% CI: 0.1-0.8) Screening for Obstructive Sleep Apnea (STOP-BANG) Do you Snore loudly? 0=No Do you often feel Tired, Fatigued, or Sleep? 0=No Has anyone Observed you Stop Breathing or Choking/Gasping during sleep? 0=No Do you have or are you being treated for High Blood Pressure? 0=No BMI over 35? 1=Yes Age older than 50? 0=No Neck size large? (For males - 17 inches or larger, For females - 16 inches or larger) 0=No Male? 0=No Score 0-2:low risk RAPHAEL, 3-4: intermediate risk of RAPHAEL, 5-8: high risk RAPHAEL 1 Assessment and Plan Preoperative clearance No contraindications to proposed anesthesia and surgery Patient is an optimal condition for proposed anesthesia and surgery Functional Assessment They are able to grocery shop. The patient's functional status is good (greater than 4 METS). 1 MET: 4 METs: 4-10 METs: Can take care of self, such as eat, dress or use the toilet. Can walk to block or go up a flight of steps. Can do heavy house work. Surgical Risk Assessment Patient is low medical risk for the listed procedure. No contraindications to proposed anesthesia and surgery Patient is an optimal condition for proposed anesthesia and surgery Evaristo Guillen MD 12/29/2023 I spent a total of 30-39 minutes (exact time 38 mins) on the date of service in preparation, delivery, and documentation of the care provided to Bess Giron excluding any time spent in the performance of separately billed services or time spent by another provider/QHP. documented in this encounter Nursing Notes * Mariely Manley CCMA - 12/28/2023 10:31 AM EST Chief Complaint Patient presents with Follow Up Pt arrives today for a f/u to review lab work. Voices no additional concerns documented in this encounter Plan of Treatment Upcoming Encounters Date Type Department Care Team (Late st Contact Info) Description 07/18/2024 8:00 AM EDT Office Visit [facility] [address] [place] [address] Evaristo Guillen MD [address] [place] [phone] Scheduled Procedures Name Priority Associated Diagnoses Date/Ti me COLONOSCOPY FLEXIBLE PROXIMAL DIAGNOSTIC Recall Colon cancer screening Health Maintenance Due Date Last Done Comments HPV/Co-Test 06/18/1989 Cologuard 06/18/2004 Fecal Occult Blood Test 06/18/2004 Sigmoidoscopy 06/18/2004 Zoster Vaccines (1 of 2) 06/18/2009 Cervical Cancer Screening 05/06/2022 Pap Smear 05/06/2022 05/07/2019, 12/0 05/2017, 12/13/2016, Additional history exists COVID-19 Vaccine ( season) 2023 Influenza Vaccine (FLU shot) (#1) 2023 12/10/2019, 12/28/2017, 01/29/2015, Additional history exists Depression Screening 07/13/2024 07/14/2023 Colonoscopy 03/26/2025 03/26/2015, 03/26/2015 Colorectal Cancer Screening 03/26/2025 DTap/Tdap Vaccines (2 - Td or Tdap) 11/10/2026 11/10/2016 Diabetes Screening 12/05/2026 12/06/2023, 0 06/23/2023, 10/13/2021, Additional history exists Lipid Panel 06/22/2028 06/23/2023, 09/21, 10/12/2020, Additional history exists HPV (Gardasil) Vaccine [...] this encounter Medical Devices Implanted Type Area Physical Medicine Physician Device Identifier Shelf Expiration Date Model / Serial / Lot Mesh Prolit Hernia [id number] - [id number] Implanted:Qty: 1 on 06/01/2012 at OR [facility] N/A: Abdomen [employer] 05/21/2015 [id number] / / [id number] Mesh C-Qur V-Patch 8cm [id number] - [id number] Implanted:Qty: 1 on 06/17/2014 by Johny Hernandez MD at OR [facility] N/A: Abdomen [employer] 12/20/2016 [id number] / / [id number] documented as of this encounter Visit Diagnoses Diagnosis Preoperative clearance- Primary Preoperative examination, unspecified documented in this encounter Advance Directives * [...] Power of Attor rowena? No Care Teams Mexican Food Maker Hand Relationship Specialty Start Date End Date Evaristo Guillen MD [address] [facility] [place] [address] PCP - General Family Medicine 09/27/17 documented as of this encounter
--- OUTSIDE RECORDS SUMMARY | 2024-01-03 17:05 | External Medical Summary | Summary of Care ---
Author Name Unknown Organization [facility] Address [address] [place] [address] Phone [phone] Care Team Providers Care Body Engineer Name Role Phone Evaristo Guillen MD Primary Care Provider Encounter Details Date Type Department Care Team (Late st Contact Info) Description 12/17/[address] [place] [address] [phone] Evaristo Guillen MD [facility] [address] [place] [phone] Allergies No known active allergiesdocumented as of this encounter (statuses as of 12/22/2023) Medications Medication Sig Dispensed Refills Start Date End Date Status GLUCOSAMINE 1500 COMPLEX PO CAPS 1 cap four times a day Active Sodium Hyaluronate 60 MG/3ML Intra-articular Prefilled Syringe (Durolane) Injection of contents of prefilled syringe intra-articularly one time. 3 mL 04/12/2023 Active Celecoxib [...] the day. 180 Capsule 2 11/16/2023 Active documented as of this encounter (statuses as of 12/22/2023) Active Problems Problem Noted Date Diagnosed Date Status post total right knee replacement 020 Gastroesophageal reflux disease without esophagi tis 10/02/2019 Obesity, Class I, BMI 30.0-34.9 (see actual BMI) 08/06/2015 History of breast cancer 04/01/2012 Overview: Left, [id number], Feb 2012 Right, [id number], Feb 2012 Bilat mastectomy 06/01/12 - reconstruction [...] money to buy more. Never true 07/14/19 Within the past 12 months, t he [...] encounter Miscellaneous Notes * Telephone Encounter - Mariely Manley CCMA - 12/19/2023 8:42 AM EDT T/C to pt at this time - relayed below message. Pt scheduled f/u appointment for 12/27 at 10:20 AM * Telephone Encounter - Evaristo Guillen MD - 12/17/2023 8:21 PM EDT Please contact patient. I received laboratory testing from Dr. Young. Results included some mild abnormalities related to hameoglobin and urine. I am assuming he would manage the lab tests that he brandi. If this did not happen, I would recommend a follow up visit. Evaristo Guillen MD 12/17/2023 documented in this encounter Plan of Treatment Upcoming Encounters Date Type Department Care Team (Late st Contact Info) Description 12/28/2023 10:20 AM EST Office Visit [facility] [address] [place] [phone] Evaristo Guillen MD [address] [facility] [address] [place] [phone] 07/18/2024 8:00 AM EDT Office Visit [facility] [address] [place] [address] Evaristo Guillen MD [address] [facility] [address] [place] [address] Scheduled Procedures Name Priority Associated Diagnoses Date/Ti [...] this encounter Medical Devices Implanted Type Area Deputy [employer] [place] Marshal Device Identifier Shelf Expiration Date Model / Serial / Lot Mesh Prolit Hernia [id number] - [id number] Implanted:Qty: 1 on 06/01/2012 at OR [facility] N/A: Abdomen [employer] 05/21/2015 [id number] / / [id number] Mesh C-Qur V-Patch 8cm [id number] - [id number] Implanted:Qty: 1 on 06/17/2014 by Johny Hernandez MD at OR [facility] N/A: Abdomen [employer] 12/20/2016 [id number] / / [id number] documented as of this encounter Advance Directives * Full Code [...] 6:55 AM 06/01/2012 4:23 PM This order reflects the patients wishes and were consensually agreed upon. Question Answer Comments Discussion of Advance Directives occurred with: Not Discussed Does the patient have a Living Will? No Does the patient have Health Care Power of Attor rowena? No Care Teams Body Engineer Relationship Specialty Start Date End Date Evaristo Guillen MD [address] [facility] [address] [place] [address] PCP - General Family Medicine 09/27/17 documented as of this encounter
[2024-01-03] MEDS: ASPIRIN 81 MG ECTAB PO SCH (20:22)
[2024-01-03] MEDS: DOCUSATE SODIUM 100 MG CAP PO SCH (20:22)
[2024-01-03] MEDS: SENNA 8.6 MG TAB PO SCH (20:22)
[2024-01-03] MEDS: TRANEXAMIC ACID / 0.7% NACL 1,000 MG/100 ML BAG IV SCH (20:23)
[2024-01-03] MEDS: KETOROLAC TROMETHAMINE 15 MG/ML VIAL IV PRN (20:30)
[2024-01-03] MEDS ORDERED: CeleBREX 200 MG CAP PO SCH (21:00)
[2024-01-03] MEDS: ONDANSETRON INJ 2 MG/ML 2 ML VIAL IV PRN (22:01)
[2024-01-04 06:18] LABS: Hematocrit (blood only) 35.5 % (37.0-47.0); Hemoglobin 11.3 g/dl (12.0-16.0); Mean Corpuscular Hemoglobin 27.4 pg (25.0-34.0); Mean Corpuscular Hgb Conc 31.8 g/dL (32.0-36.0); Mean Corpuscular Volume 86.2 fL (80.0-100.0); Mean Platelet Volume 10.1 fL (9.4-12.4); Platelet Count 357 K/uL (130-400); RDW Coefficient of Variation 14.8 % (11.5-14.5); Red Blood Count 4.12 M/uL (4.20-5.40); White Blood Count 18.73 K/ul (4.8-10.8)
[2024-01-04 06:43] LABS: BUN Creatinine Ratio 27.1 (10-20); Calcium 9.1 mg/dl (8.6-10.3); Creatinine Clr Calc Pharmacy 82.5 ml/min; Potassium 4.1 mmol/L (3.5-5.1)
[2024-01-04 07:11] VITALS: BP 118/73; PULSE 75; RESP 18; TEMP 99; O2SAT 94
[2024-01-04] MEDS: MULTIVITAMIN TAB PO SCH (08:08)
[2024-01-04] MEDS: SERTRALINE HCL 50 MG TABLET PO SCH (08:08)
[2024-01-04] MEDS: ATORVASTATIN 40 MG TAB PO SCH (08:08)
[2024-01-04] MEDS: dexAMETHasone 10 MG in SYRINGE 0 ML IV SCH (08:08)
[2024-01-04] MEDS: PANTOprazole 40 MG TAB PO SCH (08:08)
--- NOTE | 2024-01-04 08:22 | Consultation ---
Date of Consultation January 04, 2024 Assessment & Plan (1) Osteoarthritis of left knee: Plan Patient is a 63-year-old female with past medical history significant for hyperlipidemia, GERD, history of breast cancer, osteoarthritis who is status post left total knee arthroplasty on 01/03/2024. Osteoarthritis, L knee s/p left knee arthroplasty with orthopedic surgery on 01/03/24 Wound care per ortho Pain management PT/OT as appropriate DVT prophylaxis per ortho-aspirin 8mg BID Incentive spirometry Monitor H&H for acute blood loss anemia; Pre-op Hgb: 11.7, stable postop at 11.3 Continue to monitor H/H postop Hyperlipidemia Continue home atorvastatin GERD Continue home ppi Mood disorder Continue home zoloft DVT prophylaxis: aspirin 81mg BID Diet: Regular Dispo: per primary team History of Present Illness Requesting Physician: Deejay Young MD Reason for Consultation: medical management Attending Physician: Deejay Young MD History of Present Illness Patient is a 63-year-old female with past medical history significant for hyperlipidemia, GERD, history of breast cancer, mood disorder, osteoarthritis who is status post left total knee arthroplasty on 01/03/2024. Patient with history of osteoarthritis and follows with [facility]. Patient states that she had an episode of emesis overnight when she tried to get up to use the bathroom. Has since resolved. Tolerating food well. Now just having pain with movement. Otherwise denies acute concerns. Denies any chest pain, shortness of breath, abdominal pain. States she is passing gas but not yet had a bowel movement. Anticipating discharge today. Allergies Allergy/AdvReac Type Severity Reaction Status Date / Time No Known Allergies Allergy Verified 01/03/24 09:50 Home Medications Medication Instructions Recorded Confirmed Type Frame Essential Joint Health 4 cap PO QAM 01/01/19 01/03/24 History atorvastatin 40 mg tablet (Lipitor) 40 mg PO QAM 01/01/19 01/03/24 History celecoxib 200 mg capsule (Celebrex) 200 mg PO BID 01/01/19 01/03/24 History omeprazole 20 mg tablet,delayed 20 mg PO QAM 01/01/19 01/03/24 History release sertraline 50 mg tablet (Zoloft) 50 mg PO QAM 01/01/19 01/03/24 History acetaminophen 500 mg tablet 1,000 mg (2 x 500 mg) PO Q8H fever 01/03/24 Rx (Tylenol Extra Strength) or pain #90 tabs aspirin 81 mg tablet,delayed 81 mg PO BID #60 tabs 01/03/24 Rx release oxycodone 5 mg tablet 5 mg PO Q4H PRN pain #20 tabs 01/03/24 Rx Patient History Medical History Obesity Anxiety Osteoarthritis GERD (gastroesophageal reflux disease) controlled History of breast cancer s/p bilateral mastectomy (no chemo/no XRT) Hyperlipidemia Surgical History PONV (postoperative nausea and vomiting) History of arthroscopy of right shoulder Hx of total knee replacement Right TKA (02/07/19): "Under sedation, SAB attempted, unable to get CSF. Aborted. Plan GA." > LMA#4, atraumatic at [facility] History of arthroscopy of right knee History of hernia repair History of ankle surgery Left History of reconstruction of both breasts History of colonoscopy History of bilateral mastectomy Social History Smoking Status: Never smoker Second Hand Exposure: No; Do You Dip or Chew Tobacco: No; Tobacco Cessation Education Requested by Patient: No Hx Alcohol Use: No Hx Substance Use: No Preferred Language: Botswanan Communication Ability: Effective [employer] Member Required: No Beliefs That Will Affect Care: None marital status: Current Living Situation: Spouse Other Information That Helps Us Care for You: No Feels Safe at Home: Yes Safety Concerns: Feels Safe At This Time Assistive Devices: Walker Review of Systems Review of Systems: All systems reviewed & are unremarkable except as noted in Subjective Physical Exam 2 Physical Exam: General: Alert, oriented. No acute distress Psych: Appropriate mood and affect Neuro:notes pain with movement of the left knee HEENT: NC/AT CV: RRR Resp: Breath sounds clear bilaterally, no increased effort of breathing Abdomen: Soft, nontender, nondistended Extremities:left knee and leg bandaged Results & Data Vital Signs (Past 12 Hours) Vital Signs Temp Pulse Resp BP Pulse Ox O2 Del Method 01/04/24 07:08 37.2 C 75 18 118/73 94 Room Air 01/04/24 04:24 36.6 C 81 16 131/75 93 Room Air 01/03/24 23:00 36.3 C L 75 16 112/70 91 Room Air 01/03/24 21:35 83 16 144/92 H Diagnostic Findings Knee X-Ray 01/03/24 13:50 XR knee LT 1 or 2V routine HISTORY: 63 years-old Female Surgical Post Op left knee total joint arthroplasty COMPARISON: None TECHNIQUE: 2 views of the left knee FINDINGS: Total joint arthroplasty with patellar resurfacing. Anterior midline skin rakel with expected postoperative soft tissue swelling, deep tissue air with surgical drainage catheter. IMPRESSION: Total joint arthroplasty with expected postoperative changes. ACT 112: Negative or not required by law. The above report was generated using voice recognition software. It may contain grammatical, syntax or spelling errors. Electronically signed by: Layo Schuler M.D. 01/03/2024 2:49 PM (1) Osteoarthritis of left knee Osteoarthritis type: primary Qualified Code(s): M17.12 - Unilateral primary osteoarthritis, left knee
[2024-01-04] MEDS ORDERED: [UNRECOGNIZED DRUG - OTHER] PO SCH (09:00)
[2024-01-04] MEDS: oxyCODONE HCL IR 5 MG TAB (IMMEDIATE RELEASE) PO PRN (10:30)
--- NOTE | 2024-01-04 10:39 | Orthopedic Progress Note ---
Date of Service January 04, 2024 Assessment & Plan (1) Osteoarthritis of left knee: Plan: Postop day #1 status post left total knee arthroplasty. PT/OT Pain controlTylenol 1000 mg 3 times daily, as needed oxycodone DVT prophylaxisaspirin 81 mg twice daily, URIEL stockings Discharge planningHome with home health today. The patient's Hemovac will remain in place today. It will be removed tomorrow at home. Admission and Anticipated Discharge Date Admission Date: January 03, 2024 Subjective Pain is controlled in the left knee. Overall, she is doing well. No complaints today. Feels that this knee is a little more painful than her right knee was a few years ago. Physical Exam Constitutional: WD/WN, vitals as above no acute distress (Sitting comfortably in the bedside chair) Musculoskeletal: Knee: + surgical incision (Left knee dressing is C/D/I) and + surgical drain present (150 cc over the past shift); no skin erythema and no ecchymosis Skin: no rashes, warm and dry Trauma: no evidence of skin trauma Neurologic: normal touch/pain/proprioception (Left lower extremity dorsiflexion intact.) Psychiatric: A+Ox3, euthymic affect Speech: normal rate/rhythm/volume of speech Results & Data Vital Signs (Past 12 Hours) Vital Signs Temp Pulse Resp BP Pulse Ox O2 Del Method 01/04/24 07:08 37.2 C 75 18 118/73 94 Room Air 01/04/24 04:24 36.6 C 81 16 131/75 93 Room Air 01/03/24 23:00 36.3 C L 75 16 112/70 91 Room Air Laboratory Results Laboratory Tests 01/04/24 05:26 Hgb 11.3 L Hct 35.5 L BUN 19 Creatinine 0.70 (1) Osteoarthritis of left knee Osteoarthritis type: primary Qualified Code(s): M17.12 - Unilateral primary osteoarthritis, left knee
[2024-01-04] MEDS ORDERED: CeleBREX 200 MG CAP PO SCH (21:00)
== END 2024-01-04 12:24 | disposition home health service (06) ==
LOC: ASU 09:19 → 3E 09:19